=== PATIENT | female | born 1955 | race Caucasian/White ===

== ENCOUNTER 2018-05-09 07:39 | Outpatient (CLI) | payer MEDICARE, MEDICAID ==
--- NOTE | 2018-05-09 09:11 | CT ---
CT CHEST WITH CONTRAST: Multiple axial tomograms were obtained through the chest with iv enhancement. INDICATION: Breast cancer. Assess for metastasis. FINDINGS: The lung aguila are clear. There is no evidence of infiltrate or effusion. No evidence of mass or p ulmonary nodule. Mediastinum unremarkable. No evidence of axillary adenopathy. Images through uppe r abdomen show a distended gallbladder. No pericholecystic edema. Visualized liver, spleen, and callahan creas are unremarkable. Osseous structures are unremarkable. IMPRESSION: No acute process. Incidentally noted on images of the upper abdomen is a distended gallbladder. POS: [facility]
[2018-05-09] MEDS ORDERED: Iopamidol 370 76% 100 ML VIAL ONE (11:59)
--- NOTE | 2018-05-09 13:39 | NM ---
WHOLE BODY BONE SCAN: HISTORY: Malignant neoplasm, upper outer quadrant of right breast. The patient has a history of metastatic di sease to the left hip. Currently complains of right hip and left shoulder pain. The patient is on o ral chemotherapy. COMPARISON: Study from an outside institution from 01/22/2018. RADIOPHARMACEUTICAL: Technetium 99m MDP 31.5 millicuries injected intravenously. FINDINGS: Focal increased uptake in the left maxilla is again seen, consistent with periodontal disease. Focal increased uptake in the mid thoracic spine and lower lumbar spine, to the right of midline, con sistent with degenerative changes. Increased uptake in the shoulders, elbows, wrists, knees, and fee t, consistent with degenerative changes as well. No abnormally increased tracer localization is seen in either hip. Tracer excretion through the kidneys is within normal limits. Mildly increased uptake in the hip joints is also likely due to degenerative changes. IMPRESSION: No evidence of osseous metastatic disease. If there is high clinical concern for metastatic disease, MRI of the right hip and left shoulder woul d be helpful. A PET scan may also be helpful. POS: [facility]
== END 2018-05-09 07:40 | disposition home or self-care (01) ==
LOC: CT 07:39
PROVIDERS: ATTEND Internal Medicine Hematology & Oncology
DX: C50.411 Malignant neoplasm of upper-outer quadrant of right female breast (principal); C79.51 Secondary malignant neoplasm of bone
CPT/HCPCS: 71260; 78306; A9503; Q9967

== ENCOUNTER 2018-07-19 17:55 | Inpatient (IN) | payer MEDICARE, MEDICAID ==
[~2018-07-19 17:55] MED LIST: Aspirin Chewable 81 MG TAB ONE; Iopamidol 370 76% 100 ML VIAL ONE; Sodium Chloride 0.9% 1,000 ML BAG ONE
[2018-07-19 18:19] LABS: #Basophils 0.1 thou/uL (0.0-0.2); #Eosinphils 0.2 thou/uL (0.0-0.7); #Lymphocytes 1.9 thou/uL (1.20-3.40); #Monocytes 0.3 thou/uL (0.11-0.59); #Neutrophils 1.8 thou/uL (1.40-6.50); %Eosinophils 3.7 % (0.0-10.0); %Lymphocytes 45.5 % (21.0-51.0); %Monocytes 6.2 % (0.0-10.0); %Neutrophils 42.7 % (42.0-75.0); Hemoglobin 12.3 g/dL (12.0-16.0); Mean Corpuscular HGB CONC 35.7 g/dL (32.0-36.0); Mean Corpuscular Hemoglobin 35.5 pg (27.0-31.0); Mean Corpuscular Volume 99.7 fL (78.0-98.0); Mean Platelet Volume 6.7 fL (7.4-10.4); Platelet Count 167 thou/uL (130-400); RBC Distribution Width 12.9 % (11.5-14.5); Red Blood Cell (RBC) Count 3.47 mill/uL (4.20-5.40); White Blood Cell (WBC) Count 4.1 thou/uL (4.8-10.8)
--- NOTE | 2018-07-19 18:25 | RAD ---
SINGLE VIEW OF THE CHEST: 07/19/18 COMPARISON: None. HISTORY: Chest pain. Myocardial infarction. FINDINGS: Single view of the chest shows a normal sized cardiomediastinal silhouette. There is no evidence of c onsolidation, mass, or pleural effusion. The bones are unremarkable. IMPRESSION: No evidence of acute cardiopulmonary disease. POS: [facility]
[2018-07-19] MEDS ORDERED: Midazolam HCl 2 mg/2 ml Vial ONE (18:39)
[2018-07-19] MEDS ORDERED: Heparin 10,000 UNITS/1 ML VIAL ONE ×2 (18:41→19:28)
[2018-07-19] MEDS ORDERED: Nitroglycerin 100MG/250ML BOT 250 ML ONE (18:41)
[2018-07-19 18:53] LABS: ALT (SGPT) 14 U/L (8-55); AST (SGOT) 18 U/L (5-34); Albumin 4.4 g/dL (3.4-4.8); Alkaline Phosphatase 61 U/L (40-150); Anion Gap 16 mmol/L (10-20); BUN (Urea Nitrogen) 10 mg/dL (9.8-20.1); Bilirubin, Total 0.5 mg/dL (0.2-1.2); CK (CPK) 82 U/L (29-168); Calc. Creatinine Clearance 0 mL/min (70-130); Calcium 9.3 mg/dL (7.8-10.44); Carbon Dioxide 17 mmol/L (23-31); Chloride 108 mmol/L (98-107); Estimated GFR-MDRD 88; Glucose 115 mg/dL (80-115); Lipase 12 U/L (8-78); Potassium 3.8 mmol/L (3.5-5.1); Protein, Total 7.4 g/dL (6.0-8.3); Sodium 137 mmol/L (136-145)
[2018-07-19 19:04] LABS: CKMB 1.2 ng/mL (0-6.6)
[2018-07-19] MEDS ORDERED: Atropine Sulfate 1 mg/10 ml Syringe ONE (19:28)
[2018-07-19] MEDS ORDERED: TICAGRELOR 90 MG TABLET ONE (19:53)
[2018-07-19] MEDS ORDERED: Acetaminophen/Codeine 30-300mg Tablet PO PRN (20:19)
[2018-07-19] MEDS ORDERED: Nitroglycerin 0.4 MG TAB (25 Tab Bottle) SL PRN (20:19)
[2018-07-19] MEDS ORDERED: Fentanyl 100 MCG/2 ML VIAL ONE (20:19)
[2018-07-19] MEDS ORDERED: Fentanyl 100 MCG/2 ML VIAL SLOW IVP PRN (20:26)
[2018-07-19] MEDS ORDERED: Fentanyl 100 MCG/2 ML VIAL SLOW IVP SCH (20:30)
[2018-07-19] MEDS ORDERED: Nitroglycerin 2% Ointment 1 INCH/1 GM Packet TOP SCH (20:30)
[2018-07-19] MEDS ORDERED: TICAGRELOR 90 MG TABLET PO SCH (20:30)
[2018-07-19] MEDS ORDERED: Carvedilol 3.125 MG TAB PO SCH (20:45)
[2018-07-19] MEDS: Sodium Chloride 0.9% 1,000 ML IV SCH (21:05)
[2018-07-19] MEDS: Rosuvastatin 20 MG TAB PO SCH (21:06)
[2018-07-19] MEDS: Lisinopril 5 MG TAB PO SCH ×2 (21:06→22:38)
[2018-07-19] MEDS: traMADol HCl 50 MG TAB PO PRN (21:07)
--- NOTE | 2018-07-19 21:59 | CCL ---
DATE: 07/19/18 REASON FOR PROCEDURE: Acute ST elevation myocardial infarction. PROCEDURE: Left heart catheterization. Left ventriculogram. Percutaneous coronary intervention second obtuse mar ginal branch. The patient is a 63-year-old woman brought to the cardiac catheterization lab on an urgent basis havi ng chest pain and ST elevation in the inferior leads. She was prepped and draped in the usual fashion . Right groin anesthetized and using ultrasound guidance the 6 [place] [employer] sheath was placed using the mimi ropuncture kit initially. The artery was entered on the first attempt. Subsequently, coronary angiography was done. Efrain left-4 catheter visualized the circumflex better than the LAD. It is a very short left main. The right coronary was then visualized with a JR 3.5 otto de catheter. We were thinking this would likely be the infarct vessel but it proved to be a nondomina nt vessel with mild plaque and no obstruction. Returned attention to the left system and angiograms were done of the LAD using a JL 3.5 catheter. Th is all revealed a ---- of the left main short but no obstructive stenosis. LAD 10% plaque. Circumflex and obtuse marginal I normal with no obstruction. Next, obtuse marginal II in the mid segment there was an occlusion of the vessel with very small distally. Next, the left posterior descending artery w as free of any obstructive stenosis. The left ventricular ejection fraction was 75%. There was a smal l area of akinesis in the inferior wall. At this time there was some consideration whether to be treated with medically versus balloon dilatat ion. It looked like it was too small to stent. Broke scrub and went back to look at the films. After some consideration, in view of the continued chest pain and ST elevation, elected to attempt balloon angioplasty, as mentioned the vessel was too small to stent. FL3 guide catheter was used which cannul ated well. The patient was given Heparin and the ACT was therapeutic. It crossed the lesion with a 0. 014 wire and then ballooned it with a 2.0 x 20 mm balloon. Residual was approximately 35%. Long area of stenosis. It looked like the vessel was just too small to stent. It would require a long stent wit h a very small diameter. It looked like the vessel was actually not even 2.25 mm or in the 2 mm range . Patient had transient worsening of her chest pain with opening the artery and transient bradycardia b ut the EKG changes and chest pain resolved with balloon dilatation. The reason for some delay in intervention was considering whether the intervention should be done and if so how to do this versus being treated medically. As mentioned, successful intervention. CONCLUSION: One single vessel disease with occlusion of a second marginal branch in the mid segment. Small diamet er vessel successfully ballooned dilated.
[2018-07-19 22:46] VITALS: BMI 34.4
[2018-07-19] MEDS: Fentanyl 100 MCG/2 ML VIAL SLOW IVP PRN (23:00)
[2018-07-19] MEDS ORDERED: Amiodarone 450 MG, Admixture Fee 1 EACH in Dextrose 5% in Water 250 ML IVPB SCH (23:15)
[2018-07-20 00:27] LABS: Troponin I 9.477 ng/mL (< 0.028)
--- NOTE | 2018-07-20 02:02 | HP ---
REASON FOR ADMISSION: 1. Acute ST-elevation myocardial infarction. 2. Insulin-dependent diabetes mellitus. HISTORY OF PRESENT ILLNESS: Ms. Jen Arteaga is a delightful 63-year-old woman. She started having chest pain last night, it was substernal and then going across her chest, intense, but then it later resolved. During the day, the pain resolved. During the afternoon, however, it came back. It was intense and she was brought to the emergency room on an emergency basis, found to have ST-elevation in the inferior leads. She has never had pain like this before. MEDICATIONS: At home, the patient is taking, 1. Aspirin 81 mg a day. 2. Metformin 1000 mg twice a day. 3. Insulin 20 units. REVIEW OF SYSTEMS: CONSTITUTIONAL: Positive for severe chest pain. VISION: No changes. HEARING: No changes. PULMONARY: No cough or wheezing. GASTROINTESTINAL: No nausea, vomiting, or diarrhea. SKIN: No rashes. NEUROLOGIC: No unilateral weakness or numbness. PSYCHIATRIC: No unusual depression or anxiety. PAST MEDICAL HISTORY: 1. Insulin-dependent diabetes. 2. Hypertension. 3. Hypercholesterolemia. 4. She said she had some myalgias on atorvastatin. ALLERGIES: NONE REPORTED. PHYSICAL EXAMINATION: GENERAL: This is a 63-year-old woman in continued chest pain, not on any respiratory distress. VITAL SIGNS: Blood pressure initially was very high 190/117 and pulse 78. HEENT: Eyes, sclerae are nonicteric. Mouth, mucous membranes moist. NECK: Supple. No lymphadenopathy. LUNGS: Clear. No wheezing, rales, or rhonchi. CARDIAC: Normal S1, normal S2. There is no murmur, rub, or gallop. ABDOMEN: Soft and nontender. She is obese. EXTREMITIES: No clubbing or cyanosis. No edema. Good pedal pulse on the right. DIAGNOSTIC STUDIES: EKG initially did show ST-elevation in the inferior leads. PERTINENT LABORATORY DATA: Hemoglobin is 12.3. The first troponin was 0.036. ASSESSMENT: 1. Acute ST-elevation myocardial infarction. 2. Diabetes. 3. Hypertension. 4. Hypercholesterolemia, not on any medicines. PLAN: Discussed that we should go to the cardiac catheterization lab and do percutaneous intervention is indicated. Discussed risk of stroke, heart attack, iodine allergy, loss of blood supply to leg or kidney, stent thrombosis, and stent restenosis. The patient understood and wished to proceed. This was done successfully. The patient had an occlusion of the second marginal branch, which was balloon dilated. It is too small a stent that was done successfully. Job ID: [id number]
[2018-07-20] MEDS: traMADol HCl 50 MG TAB PO PRN (03:34)
[2018-07-20] MEDS ORDERED: Insulin Regular 300 UNITS/3 ML VIAL SC PRN (04:35)
[2018-07-20] MEDS ORDERED: Dextrose 50% Abboject 50 ML SYRINGE IVP PRN (04:35)
[2018-07-20] MEDS ORDERED: Dextrose 5% in Water 1,000 ML IV PRN (04:35)
[2018-07-20] MEDS: Fentanyl 100 MCG/2 ML VIAL SLOW IVP PRN (05:31)
[2018-07-20] MEDS ORDERED: Nitroglycerin 2% Ointment 1 INCH/1 GM Packet TOP SCH ×2 (06:00→08:00)
[2018-07-20 06:20] LABS: #Lymphocytes 1.3 thou/uL (1.20-3.40); #Monocytes 0.2 thou/uL (0.11-0.59); #Neutrophils 2.6 thou/uL (1.40-6.50); %Basophils 0.8 % (0.0-1.0); %Eosinophils 0.3 % (0.0-10.0); %Lymphocytes 30.7 % (21.0-51.0); %Monocytes 5.3 % (0.0-10.0); %Neutrophils 62.9 % (42.0-75.0); Mean Corpuscular HGB CONC 35.1 g/dL (32.0-36.0); Mean Platelet Volume 8.2 fL (7.4-10.4); Platelet Count 121 thou/uL (130-400); RBC Distribution Width 13.4 % (11.5-14.5); Red Blood Cell (RBC) Count 2.96 mill/uL (4.20-5.40); White Blood Cell (WBC) Count 4.1 thou/uL (4.8-10.8)
[2018-07-20 06:44] LABS: ALT (SGPT) 19 U/L (8-55); AST (SGOT) 71 U/L (5-34); Albumin 3.4 g/dL (3.4-4.8); Alkaline Phosphatase 43 U/L (40-150); Anion Gap 15 mmol/L (10-20); BUN (Urea Nitrogen) 10 mg/dL (9.8-20.1); Bilirubin, Total 0.6 mg/dL (0.2-1.2); Calc. Creatinine Clearance 137 mL/min (70-130); Calcium 8.2 mg/dL (7.8-10.44); Carbon Dioxide 16 mmol/L (23-31); Chloride 108 mmol/L (98-107); Estimated GFR-MDRD Greater than 90; Globulin 2.6 g/dL (2.4-3.5); Glucose 146 mg/dL (80-115); Potassium 3.7 mmol/L (3.5-5.1); Sodium 135 mmol/L (136-145)
[2018-07-20 06:49] LABS: Troponin I 18.055 ng/mL (< 0.028)
[2018-07-20] MEDS ORDERED: Fentanyl 100 MCG/2 ML VIAL SLOW IVP PRN (07:36)
[2018-07-20] MEDS ORDERED: Potassium Chloride 20 MEQ TAB PO SCH (08:00)
[2018-07-20] MEDS ORDERED: Magnesium 2 GM/50 ML 2 GM in Premix Bag 1 BAG IVPB SCH (08:00)
[2018-07-20] MEDS ORDERED: Carvedilol 3.125 MG TAB PO SCH (08:00)
--- NOTE | 2018-07-20 08:10 | PRG ---
DATE OF SERVICE: 07/20/2018 SUBJECTIVE: Ms. Arteaga is doing well. No chest pain or pressure. She feels much better today. OBJECTIVE: VITAL SIGNS: Blood pressure 111/60 and pulse 63, regular. LUNGS: Clear. CARDIAC: Normal S1. Normal S2. ABDOMEN: Soft, nontender. EXTREMITIES: Have clubbing. No cyanosis. There is no edema. LABORATORY DATA: The peak troponin was 18.055. Potassium 3.7. The patient did have some ventricular tachycardia relatively slow, last night was treated transiently with amiodarone. The patient was hemodynamically stable with a ventricular tachycardia. The heart rate was about 105, very slow V-tach. ASSESSMENT: 1. Status post myocardial infarction associated with obtuse marginal branch with small diameter vessel, treated with balloon angioplasty alone, looked too small to stent. 2. Transient ventricular tachycardia, resolved. 3. Diabetes. 4. Hypercholesterolemia. PLAN: 1. She is on. a. Aspirin. b. Brilinta. c. Statin. d. Losartan. 2. We will hold off on beta-sarah today with heart rate relatively low. 3. She has a lot of hip pain. We will have to cut the fentanyl down and when she leaves the intensive care unit, we will stop. Job ID: [id number]
[2018-07-20] MEDS: Aspirin Chewable 81 MG TAB PO SCH (08:24)
[2018-07-20] MEDS: TICAGRELOR 90 MG TABLET PO SCH ×2 (08:35→21:00)
[2018-07-20] MEDS ORDERED: Lisinopril 5 MG TAB PO SCH (09:00)
[2018-07-20] MEDS ORDERED: Losartan 25 MG TAB PO SCH ×2 (09:00)
[2018-07-20] MEDS: Sodium Chloride 0.9% 300 ML IV SCH ×5 (09:35→13:22)
[2018-07-20] MEDS ORDERED: Sodium Chloride 0.9% 200 ML IV PRN (10:14)
[2018-07-20] MEDS: Sodium Chloride 0.9% 1,000 ML IV SCH ×2 (10:36→16:19)
[2018-07-20] MEDS: Sodium Chloride 0.9% 250 ML IV SCH ×2 (11:00→13:23)
--- NOTE | 2018-07-20 11:16 | CON ---
DATE OF CONSULTATION: 07/20/2018 SERVICE: Pulmonary Medicine. REASON FOR CONSULTATION: ICU patient. HISTORY OF PRESENT ILLNESS: The patient is a 63-year-old white female with past medical history significant for onset of chest discomfort one day prior to presentation. Lasted for 3 or 4 hours and was kind of mild. It was chest heaviness that went up into the neck and left arm. She also had some shortness of breath that accompanied it. After a couple of hours, it went away, and she did not think much of it until the next day at 4:00 p.m. when she had the onset of the same chest discomfort, which was much more severe. After an hour and a half, it persisted and her daughter demanded that she go to the emergency department. Ultimately, she had findings consistent with ischemic heart disease, and was taken for an emergent cardiac catheterization. Blood vessel was critically stenosed and was ballooned open. Because of the size of the blood vessel, stent could not be placed across it. She denies any current fevers, chills, cough, nausea, or vomiting. As soon as the balloon was deployed, her chest pain ebbed away over a period of 2 to 3 minutes. Since then, she has not had any issues other than the marginal blood pressures yesterday evening. PAST MEDICAL HISTORY: 1. Coronary artery disease. 2. Type 2 diabetes mellitus, on insulin. 3. Hypertension. 4. Dyslipidemia. PAST SURGICAL HISTORY: 1. Hysterectomy. 2. Cardiac catheterization with percutaneous coronary intervention. FAMILY HISTORY: Noncontributory. SOCIAL HISTORY: Negative for alcohol, tobacco, or illicit drug use. ALLERGIES: LISINOPRIL. STATINS CAUSE MYALGIAS. MEDICATIONS: List of her inpatient medications was reviewed. No specific updates were made at this time. REVIEW OF SYSTEMS: General; head, ears, eyes, nose, throat; cardiovascular; respiratory; GI; ; musculoskeletal; neurologic; and skin are negative except as mentioned is the HPI. PHYSICAL EXAMINATION: VITAL SIGNS: Afebrile, pulse 84, respirations 19, and saturation 95% on room air. GENERAL: The patient is awake and alert, in no apparent distress. LUNGS: Excellent air entry. There is no prolonged expiratory phase. No wheezing, crackles, or rhonchi appreciated. HEART: Normal rate and regular. ABDOMEN: Soft, nontender, and nondistended. Bowel sounds are positive. MUSCULOSKELETAL: No cyanosis or clubbing. There is no pitting in the bilateral lower extremities. NEUROLOGIC: Grossly nonfocal. LABORATORY DATA: WBC 4.1, hemoglobin 11.0, platelets 121,000. Differential remains unremarkable. ACT is 132. Basic metabolic profile and liver function studies are unremarkable other than a gently uptrending AST. Troponin is increased to 18.055. ASSESSMENT: 1. Acute ST-elevation myocardial infarction, status post balloon angioplasty only as the branch of the obtuse marginal was too small to stent. 2. Type 2 diabetes mellitus. DISCUSSION AND PLAN: The patient is doing fine from a respiratory standpoint. She can be transitioned to the floor per Cardiology's discretion. Pulmonary will continue to follow if the patient remains in the ICU, but she will likely transition to the floor today. At that location, she will have no further requirements for inpatient Pulmonary/Critical Care opinion, and I will sign off. We will watch her blood pressures fairly closely. 70 minutes have been devoted to this patient in various activities. I personally reviewed all imaging studies and laboratory data noted within this document. For fifty percent of this time, I was interacting with the patient at the bedside or coordinating care with the care team. For the remainder of the time I was immediately available to the patient in the hospital unit. Job ID: [id number] MTDD
[2018-07-20] MEDS ORDERED: Sodium Chloride 0.9% 1,000 ML IV SCH (12:30)
[2018-07-20] MEDS: Rosuvastatin 20 MG TAB PO SCH (21:00)
[2018-07-20] MEDS: ASENAPINE 10 MG SL SCH ×2 (21:03→22:20)
[2018-07-21 05:20] LABS: #Eosinphils 0.1 thou/uL (0.0-0.7); #Lymphocytes 1.6 thou/uL (1.20-3.40); #Monocytes 0.3 thou/uL (0.11-0.59); #Neutrophils 1.7 thou/uL (1.40-6.50); %Basophils 0.9 % (0.0-1.0); %Eosinophils 1.8 % (0.0-10.0); %Lymphocytes 42.6 % (21.0-51.0); %Monocytes 9.1 % (0.0-10.0); %Neutrophils 45.6 % (42.0-75.0); Hemoglobin 10.3 g/dL (12.0-16.0); Mean Corpuscular HGB CONC 34.7 g/dL (32.0-36.0); Mean Corpuscular Hemoglobin 35.4 pg (27.0-31.0); Mean Platelet Volume 7.1 fL (7.4-10.4); Platelet Count 119 thou/uL (130-400); RBC Distribution Width 13.2 % (11.5-14.5); White Blood Cell (WBC) Count 3.7 thou/uL (4.8-10.8)
[2018-07-21] MEDS: TICAGRELOR 90 MG TABLET PO SCH ×2 (08:03→21:02)
[2018-07-21] MEDS: Aspirin Chewable 81 MG TAB PO SCH (08:03)
[2018-07-21] MEDS: Sodium Chloride 0.9% 1,000 ML IV SCH (08:03)
[2018-07-21] MEDS ORDERED: Losartan 25 MG TAB PO SCH (10:00)
[2018-07-21] MEDS ORDERED: Letrozole 2.5 MG TAB PO SCH (16:30)
[2018-07-21] MEDS: metFORMIN 500 MG TAB PO SCH (17:06)
[2018-07-21] MEDS: Rosuvastatin 20 MG TAB PO SCH (21:02)
[2018-07-21] MEDS: ASENAPINE 10 MG SL SCH (21:03)
[2018-07-22 07:35] VITALS: BP 104/56; TEMP 97.9
[2018-07-22] MEDS: metFORMIN 500 MG TAB PO SCH (08:43)
[2018-07-22] MEDS: TICAGRELOR 90 MG TABLET PO SCH (08:43)
[2018-07-22] MEDS: Aspirin Chewable 81 MG TAB PO SCH (08:43)
[2018-07-22] MEDS ORDERED: Losartan 25 MG TAB PO SCH (09:00)
[2018-07-22] MEDS ORDERED: Letrozole 2.5 MG TAB PO SCH (09:00)
--- NOTE | 2018-07-22 11:55 | DIS ---
DATE OF ADMISSION: 07/19/2018 DATE OF DISCHARGE: 07/22/2018 FINAL DIAGNOSES: 1. Status post posterior myocardial infarction. 2. Diabetes. 3. Hypercholesterolemia. 4. Obesity. 5. Hypertension. MEDICATIONS: At the time of discharge; 1. Aspirin 81 mg a day. 2. Losartan 50 mg a day. 3. Metformin 1000 mg twice a day. 4. Crestor 20 mg a day. 5. Brilinta 90 mg twice a day. HOSPITAL COURSE: Please see admission note for full details. Briefly, Ms. Arteaga is a 63-year-old woman presented to the hospital with severe intractable chest pain with ST elevation in the inferior leads. She was taken emergently to the cardiac catheterization lab. There, she was found to have the following; 1. Left main. Normal. 2. LAD. 10% plaque. 3. Circumflex to the proximal and mid segment were free of any obstructive stenosis. 4. Obtuse marginal 1. No obstructive stenosis. 5. Obtuse marginal 2. 100% occluded small diameter vessel. 6. Left posterior descending artery. No significant stenosis. 7. Right coronary artery was nondominant, not obstructive. There was some consideration for the best treatment in this patient. In view of the ongoing chest pain, it was elected to try to open the second marginal branch. There is still ST elevation. There is some consideration just treating conservatively, but in view of the ongoing chest pain and ST elevation, elected to do a balloon angioplasty. A 2.0 x 20 mm balloon was used to dilate the area up to 12 atmospheres. She had resolution of flow with a 30% to 40% residual narrowing. The vessel really looked too small to stent. In terms of the diameter stenosis, the restenosis rate would be extremely high. The patient tolerated the balloon angioplasty well. It appeared the stenting would require a very long stent probably 2 to 2.5 mm in diameter, 2.25 would slightly be oversize it appears. Did well with medical therapy following that. Her hemoglobin yesterday was 10.3. Her potassium is 3.7. She is on angiotensin receptor linda. Creatinine 0.64. Previously, she had known mixed hyperlipidemia. She was not taking statins due to myalgias. I put her back on the rosuvastatin. The patient will be followed up in the office to bring all medicines at followup in 2 weeks. The patient was NOT PRESCRIBED A BETA LINDA AT THIS TIME due to episodes of low heart rate and some hypotension. She was back on the angiotensin receptor linda. She did have some nonsustained ventricular tachycardia, rate is just 100 to 110 in the hours following the infarct, but there has been no recurrent ventricular arrhythmias. Long-term prognosis guarded. She needs to lose weight. Stay on the medications. Exercise on a regular basis. Job ID: [id number]
[2018-07-22] MEDS ORDERED: metFORMIN 500 MG TAB PO SCH (17:00)
[2018-07-22] MEDS ORDERED: Rosuvastatin 20 MG TAB PO SCH (21:00)
[2018-07-23] MEDS ORDERED: Losartan 25 MG TAB PO SCH (09:00)
--- NOTE | 2018-07-23 16:45 | EKG ---
Test Reason : POST CATH Blood Pressure : / mmHG Vent. Rate : 088 BPM Atrial Rate : 090 BPM P-R Int : 000 ms QRS Dur : 148 ms QT Int : 434 ms P-R-T Axes : 000 254 069 degrees QTc Int : 525 ms Wide QRS rhythm Accelerated idioventricular rhythm Abnormal ECG No previous ECGs available Confirmed by DR. Charlee MO ([id number]) on 07/23/2018 4:45:23 PM Referred By: Crystal MO Confirmed By:DR. Charlee MO
--- NOTE | 2018-07-23 16:46 | EKG ---
Test Reason : AM Blood Pressure : / mmHG Vent. Rate : 059 BPM Atrial Rate : 059 BPM P-R Int : 174 ms QRS Dur : 080 ms QT Int : 454 ms P-R-T Axes : 058 014 054 degrees QTc Int : 449 ms Sinus bradycardia Inferior-posterior infarct , possibly acute ACUTE MD / STEMI Abnormal ECG When compared with ECG of 19-JUL-2018 20:31, (Unconfirmed) Sinus rhythm has replaced Wide QRS rhythm Vent. rate has decreased BY [address] Charlee MO ([id number]) on 07/23/2018 4:45:41 PM Referred By: Crystal MO Confirmed By:DR. Charlee MO
== END 2018-07-22 10:35 | disposition home or self-care (01) | DRG 251 ==
LOC: ERS 17:55 → CCL 18:34 → CCU 19:27 → 2NO 07-20 12:59
PROVIDERS: ADMIT Internal Medicine Cardiovascular Disease; ATTEND Internal Medicine Cardiovascular Disease
PROC: 02703ZZ Dilation of Coronary Artery, One Artery, Percutaneous Approach (ICD-10-PCS; principal; 2018-07-19)
PROC: 4A023N7 Measurement of Cardiac Sampling and Pressure, Left Heart, Percutaneous Approach (ICD-10-PCS; 2018-07-19)
PROC: B2151ZZ Fluoroscopy of Left Heart using Low Osmolar Contrast (ICD-10-PCS; 2018-07-19)
PROC: B2101ZZ Fluoroscopy of Single Coronary Artery using Low Osmolar Contrast (ICD-10-PCS; 2018-07-19)
DX: I21.29 ST elevation (STEMI) myocardial infarction involving other sites (principal); I47.2 Ventricular tachycardia; E11.9 Type 2 diabetes mellitus without complications; I10 Essential (primary) hypertension; E78.00 Pure hypercholesterolemia, unspecified; M79.10 Myalgia, unspecified site; I25.10 Atherosclerotic heart disease of native coronary artery without angina pectoris; Z90.710 Acquired absence of both cervix and uterus; Z79.4 Long term (current) use of insulin; Z79.82 Long term (current) use of aspirin; Z79.899 Other long term (current) drug therapy
CPT/HCPCS: 36415; 36416; 71045; 80053; 82550; 82553; 83690; 84484; 85025; 85347; 92920; 93005; 93010; 93306; 93458; 93798; 99152; 99153; C1769; C1887; J0282; J0461; J1644; J2250; J3010; J3475; J7050; J7070; Q9967

== ENCOUNTER 2018-07-25 14:52 | Observation (INO) | payer MEDICARE, MEDICAID ==
[2018-07-25 15:23] LABS: #Basophils 0.1 thou/uL (0.0-0.2); #Eosinphils 0.1 thou/uL (0.0-0.7); #Monocytes 0.5 thou/uL (0.11-0.59); #Neutrophils 2.1 thou/uL (1.40-6.50); %Basophils 1.7 % (0.0-1.0); %Lymphocytes 42.3 % (21.0-51.0); %Monocytes 10.2 % (0.0-10.0); %Neutrophils 42.8 % (42.0-75.0); Hemoglobin 11.9 g/dL (12.0-16.0); Mean Corpuscular HGB CONC 34.7 g/dL (32.0-36.0); Mean Corpuscular Hemoglobin 35.2 pg (27.0-31.0); Mean Platelet Volume 6.4 fL (7.4-10.4); Platelet Count 194 thou/uL (130-400); RBC Distribution Width 13.1 % (11.5-14.5); Red Blood Cell (RBC) Count 3.37 mill/uL (4.20-5.40); White Blood Cell (WBC) Count 4.8 thou/uL (4.8-10.8)
[2018-07-25 15:47] LABS: ALT (SGPT) 25 U/L (8-55); AST (SGOT) 27 U/L (5-34); Albumin 4.5 g/dL (3.4-4.8); Alkaline Phosphatase 59 U/L (40-150); Anion Gap 15 mmol/L (10-20); BUN (Urea Nitrogen) 16 mg/dL (9.8-20.1); Bilirubin, Total 0.7 mg/dL (0.2-1.2); Calc. Creatinine Clearance 0 mL/min (70-130); Calcium 9.7 mg/dL (7.8-10.44); Carbon Dioxide 21 mmol/L (23-31); Chloride 107 mmol/L (98-107); Estimated GFR-MDRD 69; Globulin 2.6 g/dL (2.4-3.5); Glucose 110 mg/dL (80-115); Protein, Total 7.1 g/dL (6.0-8.3); Sodium 139 mmol/L (136-145)
--- NOTE | 2018-07-25 16:42 | RAD ---
PORTABLE CHEST 1 VIEW: Date: 07/25/18 Time: 1531 hours HISTORY: Chest pain. FINDINGS: Comparison made with exam of 07/19/18. The heart size is normal. The lungs are expanded without focal areas of consolidation, pneumothoraces , or pleural effusions. IMPRESSION: No acute process. POS: [facility]
[2018-07-25] MEDS ORDERED: Enoxaparin Sodium 100 MG/ML SYRINGE ONE (17:07)
[2018-07-25] MEDS ORDERED: Nitroglycerin 2% Ointment 1 INCH/1 GM Packet ONE (17:50)
[2018-07-25 18:57] LABS: Critical Call Chem Troponin I RESULT DECREASING; Troponin I 0.673 ng/mL (< 0.028)
[2018-07-25] MEDS ORDERED: Guaifenesin DM 100-10/5 ML UDCUP PO PRN (19:11)
[2018-07-25] MEDS ORDERED: Acetaminophen 325 MG TAB PO PRN (19:11)
[2018-07-25] MEDS ORDERED: Nitroglycerin 0.4 MG TAB (25 Tab Bottle) SL PRN (19:11)
[2018-07-25] MEDS ORDERED: HumaLOG 300 UNITS/3 ML VIAL SC PRN ×2 (19:11)
[2018-07-25] MEDS ORDERED: Bisacodyl 10 MG SUPP PR PRN (19:11)
[2018-07-25] MEDS ORDERED: Dextrose 50% Abboject 50 ML SYRINGE SLOW IVP PRN (19:11)
[2018-07-25] MEDS ORDERED: Dextrose 5% in Water 1,000 ML IV PRN (19:11)
[2018-07-25] MEDS ORDERED: Senokot S 8.6-50 MG TAB PO PRN (19:11)
[2018-07-25] MEDS ORDERED: Sodium Chloride 0.9% 1,000 ML IV SCH (19:15)
[2018-07-25 19:18] VITALS: BMI 33.0
[2018-07-25] MEDS: TICAGRELOR 90 MG TABLET PO SCH (20:37)
[2018-07-25] MEDS: Famotidine 20 MG TAB PO SCH (20:37)
[2018-07-25] MEDS: Rosuvastatin 20 MG TAB PO SCH (20:40)
[2018-07-25] MEDS: Enoxaparin Sodium 100 MG/ML SYRINGE SC SCH (20:40)
--- NOTE | 2018-07-25 20:43 | HP ---
REASON FOR ADMISSION: Chest pain. HISTORY OF PRESENTING ILLNESS: The patient gives history of left-sided chest pain, which is 4 to 5/10 in intensity with radiation to the neck area. She has had balloon angioplasty done on last Sunday for second marginal branch in the mid segment area on 07/19/[address] Salmeron. She was told that this was a small vessel and it could not be stented. The patient stated from Sunday evening when she got discharged, she has been getting some exertional chest pain, but not as bad as today. She took 3 tablets of nitroglycerin, which did not completely relieve her pain, hence called Dr. Salmeron's office and was asked to come to the ER. Currently, she still has pain of 3 to 4/10 in intensity. No complaints of palpitations, PND, or orthopnea. PAST MEDICAL AND SURGICAL HISTORY: 1. History of breast cancer, on Ibrance and letrozole. She was diagnosed in 2017 and is in remission from last 1 year or so. She has not received radiation therapy, but has received chemotherapy. No surgery was done for her breast cancer. 2. History of cervical cancer with prior hysterectomy. 3. Dyslipidemia. 4. Hypertension. 5. Diabetes mellitus type 2, which is insulin dependent. CURRENT MEDICATIONS: 1. Brilinta 90 mg twice daily. 2. Crestor 20 mg p.o. daily. 3. Metformin 1000 mg p.o. twice daily. 4. Losartan 50 mg p.o. daily. 5. Letrozole 2.5 mg p.o. daily. 6. Aspirin 81 mg daily. 7. Ibrance 125 mg p.o. daily. 8. Levemir 20 units subcu at bedtime. ALLERGIES: INTOLERANT TO LISINOPRIL, WHICH CAUSES HER TO HAVE COUGHING SPELLS. PERSONAL HISTORY: Does not abuse alcohol or drugs. No history of smoking. FAMILY HISTORY: Mother at the age of 80 years. She has had history of coronary artery disease, COPD, and diabetes. Father committed suicide when he was 81 years old. CODE STATUS: Full. POWER OF LEARNING AND DEVELOPMENT MANAGER: Her daughter, Ms. Aydee Salazar. REVIEW OF SYSTEMS: CONSTITUTIONAL: Negative for weight loss or gain, ability to conduct usual activities. SKIN: Negative for rash, itching. EYES: Negative for double vision, pain. ENT/MOUTH: Negative for nose bleeding, neck stiffness, pain, tenderness. CARDIOVASCULAR: Negative for palpitations, dyspnea on exertion, orthopnea. RESPIRATORY: Negative for shortness of breath, wheezing, cough, hemoptysis, fever or night sweats. GASTROINTESTINAL: Negative for poor appetite, abdominal pain, heartburn, nausea , vomiting, constipation, or diarrhea. GENITOURINARY: Negative for urgency, frequency, dysuria, nocturia. MUSCULOSKELETAL: Negative for pain, swelling. NEUROLOGIC/PSYCHIATRIC: Negative for anxiety, depression. ALLERGY/IMMUNOLOGIC: Negative for skin rash, bleeding tendency. PHYSICAL EXAMINATION: GENERAL: The patient is a 63-year-old female, who is currently not in any acute distress. VITAL SIGNS: Blood pressure 100/66, pulse 76 per minute, respiratory rate 16 per minute, temperature 99 degrees Fahrenheit, saturating 99% on room air. NECK: Supple. No elevated JVD. HEENT: Eyes; extraocular muscles intact. Pupils reacting to light. Oral cavity, mucous membranes are moist. No exudates or congestion. CARDIOVASCULAR: S1, S2 heard. Regular rhythm. RESPIRATORY: Air entry 1+ bilateral. No rales or rhonchi. ABDOMEN: Soft. Bowel sounds heard. No tenderness, rigidity, or guarding. EXTREMITIES: No peripheral edema or calf tenderness. VASCULAR: Peripheral pulses 1+ bilateral. No ischemic ulcerations or gangrene. CENTRAL NERVOUS SYSTEM: No gross focal deficits noted. The patient is alert, awake, oriented well. PSYCHIATRIC: The patient's mood is euthymic. No hallucinations or delusions. LABORATORY AND DIAGNOSTIC DATA: Chest x-ray done, shows no acute cardiothoracic process. Troponin-I 0.76, first set; second set is 0.67. CK-MB 1.0. Albumin is 4.5. Liver enzymes within normal limits. BUN 16, creatinine 0.8, serum bicarb is 21. White count of 4.8, H and H are 11 and 34, platelet count 194, MCV is 101 with 42% neutrophils. EKG done, shows normal sinus rhythm at 74 beats per minute. There is questionable Q-wave seen in leads II, III, aVF. CLINICAL IMPRESSION AND PLAN: The patient will be under observation on telemetry for chest pain, rule out ACS with recent balloon angioplasty of second marginal branch done on 07/19/[address] Salmeron. She has had STEMI of inferior wall then during her hospitalization. We will continue her aspirin, Brilinta, and add Lovenox 90 mg subcu q.12 hourly as the patient still has ongoing chest pain. Dr. Salmeron has been consulted from ER for Cardiology consultation. We will continue her on a small dose of Lopressor at 12.5 mg twice daily, nitroglycerin paste half-inch q.8 hourly, normal saline 70 mL per hour to keep her systolic blood pressures above 100. We will hold her Cozaar for now due to low blood pressure. We will continue Crestor, letrozole, and Ibrance. The patient will be on clear liquid diet for now until Cardiology clears her. We will continue to closely monitor her on telemetry. Job ID: [id number] MTDD
[2018-07-25] MEDS ORDERED: Metoprolol Tartrate 25 MG TAB PO SCH (21:00)
[2018-07-25 21:55] LABS: Critical Call Chem Troponin I RESULT DECREASING; Troponin I 0.629 ng/mL (< 0.028)
[2018-07-25] MEDS: Nitroglycerin 2% Ointment 1 INCH/1 GM Packet TOP SCH (22:12)
--- NOTE | 2018-07-25 23:15 | CON ---
DATE OF CONSULTATION: 07/25/2018 INDICATION FOR CONSULTATION: A 63-year-old female who recently within the last week underwent angioplasty to the left circumflex, 2nd obtuse marginal branch, which was a very small vessel. It was almost too small to have a stent placed. She came in with a non ST-segment elevation myocardial infarction. Her troponin I was positive for myocardial infarction. She then presented again. She actually was discharged home on Sunday. She said she was doing okay, but then Sunday night, started feeling bad again. She complains of intermittent chest pressure. She has been having some nausea. She has been taking nitroglycerin, which relieved her pain usually and then today she took 3 nitroglycerin. She called the office and was advised to go to the emergency room. When she arrived here, her cardiac enzymes still trending downward from her previous non ST-segment elevation myocardial infarction. Her EKG did not show any acute ST-segment changes. She does have T-wave inversion in III and aVF, but no acute ST-segment elevation and she appears to be very comfortable, but still states she occasionally has some chest pressure and she also states occasionally she is short of breath. She has actually been relatively active since being discharged. She takes her grandchildren to the library. She has been going to the store, but still continues to have some chest discomfort despite these maneuvers, and then today she started having a cough. At this time, she appears to be relatively comfortable in the emergency room. She was given nitroglycerin, Lovenox and 1 L of fluid because she was somewhat hypotensive when she arrived in the emergency room. PAST MEDICAL HISTORY: Significant for breast cancer, which has been metastatic. She states now, however, she is cured. She was given chemotherapy, but no radiation or surgery was performed. She also had mets to the bone. She states now this is completely resolved. She has had also cervical cancer and hysterectomy. SOCIAL HISTORY: She has no alcohol or tobacco abuse. She has children who have no heart disease. FAMILY HISTORY: Her mother did have coronary artery disease, congestive heart failure, and atrial fibrillation as well as COPD. ALLERGIES: NONE. MEDICATIONS: Include; 1. Aspirin 81 mg a day. 2. Metformin a 1000 mg b.i.d. 3. Levemir insulin. 4. Losartan 25 mg a day. 5. Brilinta 90 mg b.i.d. 6. Nitroglycerin p.r.n. as noted above. 7. Isosorbide mononitrate 30 mg q.24 h. 8. Crestor 20 mg daily. 9. Letrozole 2.5 mg once a day. ALLERGIES: NONE. REVIEW OF SYSTEMS: She wears glasses. She complains of cough, shortness of breath, nausea, lightheadedness, and chest pressure. Otherwise, 12-point review of systems was unremarkable. PHYSICAL EXAMINATION: GENERAL: Reveals an obese, middle-aged female. VITAL SIGNS: Blood pressure is 114/69, heart rate is 74 and regular. HEENT: Show the head to be normocephalic and atraumatic. Carotid pulses are present. There ar no bruits. CHEST: Clear to auscultation without rales, rhonchi, or wheezing. CARDIOVASCULAR: Reveals a regular rate and rhythm with normal S1, S2. I do not hear an S3 nor an S4. No other any significant murmurs, heaves, thrills, bruits , or rubs. ABDOMEN: Obese. Positive bowel sounds are present. No organomegaly or masses are noted. VASCULAR: Femoral pulses are present. EXTREMITIES: Show mild 1+ lower extremity edema. Pedal pulses are present. There are no other abnormalities. SKIN: Warm and dry. NEUROLOGIC: The patient appears to be fully intact. She does appear to be somewhat anxious at times though. DIAGNOSTIC DATA: EKG shows a sinus rhythm with T-wave inversion in III and aVF , and also small Q-waves in III and aVF, as well as in lead II compatible with inferior myocardial infarction. Otherwise, the EKG is relatively unremarkable. I suspect this may be due to the previous non STEMI that she suffered on her last admission, which was just a few days ago. LABORATORY DATA: As noted, her troponin I continues to trend downward. Remaining laboratory data appear to be stable. IMPRESSION: 1. Middle-aged female who is status post non ST-segment elevation myocardial infarction, who underwent angioplasty to the left circumflex, second obtuse marginal branch, which was a very small vessel. She may need to have further intervention. She may have re-occluded the vessel or she may have restenosed the vessel. Certainly after reviewing the films, even if the vessel closes, most likely she will not have a large myocardial infarction or not a large amount of tissue at risk, andt she has started to form collaterals from the distal left anterior descending artery to the obtuse marginal branch. She may continue to form this. I did explain to the patient that she may continue to have some pressure until the collaterals have increased in size or if she continues to have problems or EKG changes then it is always a possibility she could undergo a repeat cardiac catheterization and possible small stent placement to the obtuse marginal branch of left circumflex. I did also explain to her that due to the size of the vessel, she would be at risk for having stent thrombosis due to the small vessel size. 2. History of breast cancer which has been metastatic. This appears to be stable at this time. From a cardiac standpoint, she appears to be relatively stable despite the chest pressure. I would agree with the present management. We will continue the nitrates as well as her other medications for her hypertension and also for her diabetes, and also we would continue the Brilinta. Further care of the patient will be directed by Dr. Salmeron when he visits with the patient tomorrow. I did explain her she needs to be kept n.p.o. after midnight tonight until he can make a decision tomorrow morning about possible repeat catheterization. Job ID: [id number] MTDD
[2018-07-26] MEDS: ASENAPINE 10 MG PO SCH ×2 (02:02→21:05)
[2018-07-26] MEDS: Nitroglycerin 2% Ointment 1 INCH/1 GM Packet TOP SCH ×2 (05:53→17:29)
[2018-07-26 06:18] LABS: Eosinophils 4 % (0-10); Hemoglobin 10.8 g/dL (12.0-16.0); Lymphocytes 57 % (21-51); MDiff Complete? YES; Mean Corpuscular HGB CONC 34.7 g/dL (32.0-36.0); Mean Corpuscular Hemoglobin 35.2 pg (27.0-31.0); Mean Platelet Volume 6.7 fL (7.4-10.4); Monocytes 15 % (0-10); Neutrophil 23 % (42-75); Platelet Count 154 thou/uL (130-400); Platelet Morphology Comment Appears Adequate; RBC Distribution Width 13.1 % (11.5-14.5); Red Blood Cell (RBC) Count 3.07 mill/uL (4.20-5.40); White Blood Cell (WBC) Count 4.2 thou/uL (4.8-10.8)
[2018-07-26 06:20] LABS: Anion Gap 11 mmol/L (10-20); BUN (Urea Nitrogen) 11 mg/dL (9.8-20.1); Calc. Creatinine Clearance 105 mL/min (70-130); Carbon Dioxide 21 mmol/L (23-31); Chloride 114 mmol/L (98-107); Estimated GFR-MDRD 73; Glucose 130 mg/dL (80-115); Potassium 3.9 mmol/L (3.5-5.1); Sodium 142 mmol/L (136-145)
[2018-07-26] MEDS ORDERED: Losartan 25 MG TAB PO SCH (09:00)
[2018-07-26] MEDS: Aspirin Chewable 81 MG TAB PO SCH (09:46)
[2018-07-26] MEDS: TICAGRELOR 90 MG TABLET PO SCH ×2 (09:46→21:06)
[2018-07-26] MEDS: Famotidine 20 MG TAB PO SCH ×2 (09:47→21:06)
[2018-07-26] MEDS: Letrozole 2.5 MG TAB PO SCH (09:48)
[2018-07-26] MEDS: Enoxaparin Sodium 100 MG/ML SYRINGE SC SCH ×2 (09:50→11:51)
--- NOTE | 2018-07-26 09:55 | PRG ---
DATE OF SERVICE: 07/26/2018 SUBJECTIVE: As outlined in the chart, Ms. Arteaga is admitted with recurrent episodes of chest pressure at rest yesterday. The patient is pain-free now. OBJECTIVE: VITAL SIGNS: Her blood pressure is 142/73 and pulse is 61 and regular. LUNGS: Clear. CARDIAC: Normal S1 and normal S2. ABDOMEN: Soft and nontender. LABORATORY DATA: Troponin levels went from 0.76 yesterday to 0.69 last night. This is probably related to the recent myocardial infarction as opposed to additional injury. ASSESSMENT: 1. Status post ST-elevation myocardial infarction a week ago. The culprit vessel with an obtuse marginal branch, a very small diameter branch, approximately 2 mm in diameter, about 20 mm in length plaque. 2. Recurrent chest pain, probably related to the same vessel. Poor candidate for stenting due to the small diameter of the vessel. PLAN: Discussed options. 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 She prefers not to have a stent placed unless we actually had to do this. I think that is reasonable. Certainly, if the vessel occluded, would not be indicated to try to open the vessel. Also at this point, there may be some difficulty in placing a wire down the vessel if it is still open. Medical therapy seems appropriate at this time. If she continues to have pain, we could repeat the catheterization. As mentioned, if she does have occlusion of the vessel, would not try to re-intervene. If it is still open, could try to get a wire and then a stent down the vessel, although the long-term patency rate on these long lesions and very small vessels is not good. The patient is doing quite well now. Hopefully, she can be go home tomorrow if doing well and will be out for next few days. Job ID: [id number]
--- NOTE | 2018-07-26 13:07 | PDOC.PN ---
- Subjective Encounter Start Date: 07/26/18 Encounter Start Time: 09:15 Subjective: no chest pain or sob now -: feels better -: she saw this am - Objective Resuscitation Status - Order Detail: 07/25/18 18:59 Resuscitation Status Routine Resuscitation Status: FULL: Full Resuscitation Discussed with: POA: Ms.Dana Salazar daughter JEFFREY Reviewed: Yes Vital Signs & Weight: Vital Signs (12 hours) Temp Pulse Resp BP BP Pulse Ox 07/26/18 11:41 98.7 F 69 19 125/70 97 07/26/18 07:48 97.8 F 61 16 142/73 H 97 07/26/18 02:41 65 16 110/68 97 Weight Weight 198 lb 3.2 oz I&O: 07/25/18 07/26/18 07/27/18 06:59 06:59 06:59 Intake Total 1242 269 Output Total 1400 Balance -158 269 Result Diagrams: 07/26/18 05:26 07/26/18 05:26 Additional Labs: Accuchecks 07/26/18 07/25/18 10:25 22:13 POC Glucose 237 H 172 H Phys Exam - Physical Examination HEENT: PERRLA, moist MMs Neck: no JVD, supple Respiratory: no wheezing, no rales Cardiovascular: RRR, no significant murmur Gastrointestinal: soft, non-tender, positive bowel sounds Musculoskeletal: no edema, pulses present Neurological: non-focal, moves all 4 limbs Psychiatric: normal affect, A&O x 3 Dx/Plan (1) Chest pain Code(s): R07.9 - CHEST PAIN, UNSPECIFIED Status: Resolved (2) CAD (coronary artery disease) Code(s): I25.10 - ATHSCL HEART DISEASE OF [place] CORONARY ARTERY W/O ANG PCTRS Status: Acute Qualifiers: Coronary Disease-Associated Artery/Lesion type: [place] artery [place] vs. transplanted heart: [place] heart Associated angina: with stable angina Qualified Code(s): I25.118 - Atherosclerotic heart disease of [place] coronary artery with other forms of angina pectoris Comment: recent angioplasty with no stent (3) HTN (hypertension) Code(s): I10 - ESSENTIAL (PRIMARY) HYPERTENSION Status: Chronic Qualifiers: Hypertension type: essential hypertension Qualified Code(s): I10 - Essential (primary) hypertension (4) Dyslipidemia Code(s): E78.5 - HYPERLIPIDEMIA, UNSPECIFIED Status: Chronic (5) DM type 2 (diabetes mellitus, type 2) Status: Chronic Qualifiers: Diabetes mellitus mcfp insulin use: with mcfp use Diabetes mellitus complication status: with unspecified complications Qualified Code(s) : E11.8 - Type 2 diabetes mellitus with unspecified complications; Z79.4 - detention (current) use of insulin (6) H/O malignant neoplasm of breast Code(s): Z85.3 - PERSONAL HISTORY OF MALIGNANT NEOPLASM OF BREAST Status: Chronic Comment: in remission, finished chemo, no radiation or surgery - Plan hemostable -: continue asp, brillinta, imdur, cozaar, toprol xl, crestor -: continue home insulin regimen -: dc plan in am per cardio adv -: to ambulate in hallway as tolerated, will dc lovenox full dose * . Review of Systems - Medications/Allergies Allergies/Adverse Reactions: Allergies Allergy/AdvReac Type Severity Reaction Status Date / Time lisinopril Allergy COUGH Verified 07/19/18 22:41 Medications: Current Medications Acetaminophen (Tylenol) 650 mg PO Q4H PRN PRN Reason: Headache/Fever/Mild Pain (1-3) Last Admin: 07/25/18 20:46 Dose: 650 mg Aspirin (Aspirin Chewable) 81 mg PO DAILY [facility] Last Admin: 07/26/18 09:46 Dose: 81 mg Bisacodyl (Dulcolax) 10 mg RI DAILYPRN PRN PRN Reason: Constipation Dextrose/Water (Dextrose 50%) 25 gm SLOW IVP PRN PRN PRN Reason: Hypoglycemia Enoxaparin Sodium (Lovenox) 90 mg SC Q12HR [facility] Last Admin: 07/26/18 11:51 Dose: 90 mg Famotidine (Pepcid) 20 mg PO BID [facility] Last Admin: 07/26/18 09:47 Dose: 20 mg Glucagon (Glucagon) 1 mg IM PRN PRN PRN Reason: Hypoglycemia Guaifenesin/Dextromethorphan (Robitussin Dm) 15 ml PO Q4H PRN PRN Reason: Cough Dextrose/Water (D5w) 1,000 mls @ 0 mls/hr IV .Q0M PRN PRN Reason: Hypoglycemia Insulin Human Lispro (Humalog) 0 units SC .MODERATE SLIDING SC PRN PRN Reason: Moderate Correctional Scale Last Admin: 07/26/18 11:51 Dose: 4 unit Insulin Human Lispro (Humalog) 0 units SC .BEDTIME SLIDING SC PRN PRN Reason: Bedtime Correctional Scale Isosorbide Mononitrate (Imdur) 60 mg PO DAILY [facility] Last Admin: 07/26/18 09:47 Dose: 60 mg Letrozole (Femara) 2.5 mg PO DAILY [facility] Last Admin: 07/26/18 09:48 Dose: 2.5 mg Losartan Potassium (Cozaar) 25 mg PO DAILY [facility] Metoprolol Succinate (Toprol Xl) 25 mg PO DAILY [facility] Last Admin: 07/26/18 09:46 Dose: 25 mg Nitroglycerin (Nitrostat) 0.4 mg SL Q5MIN PRN PRN Reason: Chest Pain Palbociclib [Ibrance (]) 0 each PO DAILY [facility] Asenapine (Saphris) (10 Mg) 0 each PO HS [facility] Last Admin: 07/26/18 02:02 Dose: Not Given Rosuvastatin Calcium (Crestor) 20 mg PO HS [facility] Last Admin: 07/25/18 20:40 Dose: Not Given Senna/Docusate Sodium (Senokot S) 2 tab PO BID PRN PRN Reason: Constipation Sodium Chloride (Flush - Normal Saline) 10 ml IVF Q12HR [facility] Last Admin: 07/26/18 09:50 Dose: Not Given Sodium Chloride (Flush - Normal Saline) 10 ml IVF PRN PRN PRN Reason: Saline Flush Ticagrelor (Brilinta) 90 mg PO BID [facility] Last Admin: 07/26/18 09:46 Dose: 90 mg
[2018-07-26] MEDS: metFORMIN 500 MG TAB PO SCH (17:28)
[2018-07-26] MEDS: Rosuvastatin 20 MG TAB PO SCH (21:07)
[2018-07-27] MEDS: Nitroglycerin 2% Ointment 1 INCH/1 GM Packet TOP SCH ×2 (01:49→08:27)
[2018-07-27 07:56] VITALS: BP 127/65; TEMP 97.3
[2018-07-27] MEDS: metFORMIN 500 MG TAB PO SCH (08:19)
[2018-07-27] MEDS: Aspirin Chewable 81 MG TAB PO SCH (08:19)
[2018-07-27] MEDS: Famotidine 20 MG TAB PO SCH (08:19)
[2018-07-27] MEDS: Letrozole 2.5 MG TAB PO SCH (08:20)
[2018-07-27] MEDS: TICAGRELOR 90 MG TABLET PO SCH (08:21)
[2018-07-27] MEDS ORDERED: Losartan 25 MG TAB PO SCH (09:00)
[2018-07-27] MEDS ORDERED: Non-Formulary Item 1 EACH (Insulin Detemir [Levemir] 20 UNIT) SQ SCH (09:00)
[2018-07-27] MEDS ORDERED: Insulin Glargine 20 UNITS in Pre-Filled Syringe SC SCH (09:00)
[2018-07-27 09:10] LABS: Hemoglobin 10.9 g/dL (12.0-16.0); Platelet Count 151 thou/uL (130-400)
== END 2018-07-27 11:18 | disposition home or self-care (01) ==
LOC: ERS 14:52 → 2SW 18:54
PROVIDERS: ADMIT Internal Medicine; ATTEND Internal Medicine
DX: R07.89 Other chest pain (principal); R05 Cough; R06.02 Shortness of breath; R11.0 Nausea; R42 Dizziness and giddiness; I10 Essential (primary) hypertension; E11.9 Type 2 diabetes mellitus without complications; E78.5 Hyperlipidemia, unspecified; Z79.4 Long term (current) use of insulin; Z79.82 Long term (current) use of aspirin; Z79.899 Other long term (current) drug therapy; Z88.8 Allergy status to other drugs, medicaments and biological substances
CPT/HCPCS: 71045; 80048; 80053 ×2; 82553; 82565; 82962 ×3; 84484 ×2; 85014; 85018; 85025 ×2; 85049; 86300; 93005; 94760; 96360; 96361 ×2; 96372 ×2; 97139; 99285; G0378 ×2; 36415; 36416; J1650; J1825

== ENCOUNTER 2018-08-06 16:21 | Outpatient (CLI) | payer MEDICARE, MEDICAID ==
--- NOTE | 2018-08-06 16:50 | SJPRAD ---
Right hip 2 views HISTORY: Right hip pain. FINDINGS: Joint space is preserved. Mild osteophytosis. Femoral head contour is maintained. Small norberto unt of heterotopic ossification adjacent to the greater trochanter. No acute fracture, dislocation, or aggressive osseous erosions. IMPRESSION: VERY MILD DEGENERATIVE CHANGES RIGHT HIP.
--- NOTE | 2018-08-06 16:52 | SJPRAD ---
Cervical spine 3 views HISTORY: Neck pain. FINDINGS: Vertebral heights and alignment are maintained. Osteophytosis most pronounced at the C4-5-6 levels. Cervicothoracic junction is intact. No acute fracture, dislocation, or aggressive osseous erosions. IMPRESSION: Degenerative changes cervical spine. No acute osseous abnormalities are demonstrated.
== END 2018-08-06 16:22 | disposition home or self-care (01) ==
LOC: MWLC RAD 16:21
PROVIDERS: ATTEND Internal Medicine Geriatric Medicine
DX: M25.551 Pain in right hip (principal); M54.2 Cervicalgia; M47.812 Spondylosis without myelopathy or radiculopathy, cervical region; M16.11 Unilateral primary osteoarthritis, right hip

== ENCOUNTER 2018-09-20 20:30 | Outpatient (CLI) | payer MEDICARE, MEDICAID | END 2018-09-20 20:31 | disposition home or self-care (01) | LOC: SLEEPLAB 20:30 | PROVIDERS: ATTEND Internal Medicine Cardiovascular Disease | DX: G47.33 Obstructive sleep apnea (adult) (pediatric) (principal); R53.83 Other fatigue; K21.9 Gastro-esophageal reflux disease without esophagitis; R06.83 Snoring; I25.10 Atherosclerotic heart disease of native coronary artery without angina pectoris; I10 Essential (primary) hypertension | CPT/HCPCS: 95810 ==

== ENCOUNTER 2018-11-11 09:20 | Outpatient (CLI) | payer MEDICARE, MEDICAID ==
--- NOTE | 2018-11-11 11:24 | CT ---
CT chest with IV contrast HISTORY: Right breast cancer. Restaging. COMPARISON: 05/09/2018. FINDINGS: Calcified granulomata are stable. No parenchymal lung mass. No pleural fluid, pneumothorax, or mediastinal adenopathy. Parenchymal scarring of the right breast is stable. Degenerative changes throughout the thoracic spin e. Within the partially visualized upper abdomen, marked distention of the gallbladder is similar to the previous exam. IMPRESSION: No CT evidence of metastatic disease of the chest.
[2018-11-11] MEDS ORDERED: Iopamidol 370 76% 100 ML VIAL ONE (13:14)
--- NOTE | 2018-11-11 15:08 | NM ---
WHOLE BODY BONE SCAN: HISTORY: Right breast cancer. Secondary malignant neoplasm of bone RADIOPHARMACEUTICAL: 30 mCi technetium 99m-MDP injected intravenously COMPARISON: None CORRELATION: CT chest from same date FINDINGS: There scattered degenerative activity in the appendicular skeleton. Periodontal disease is seen. No other abnormal areas of tracer localization are seen in the skeleton to suggest metastatic disease . Tracer excretion through the kidneys is within normal limits. IMPRESSION: No scintigraphic evidence of osseous metastatic disease.
== END 2018-11-11 09:21 | disposition home or self-care (01) ==
LOC: CT 09:20
PROVIDERS: ATTEND Internal Medicine Hematology & Oncology
DX: C50.411 Malignant neoplasm of upper-outer quadrant of right female breast (principal); C79.51 Secondary malignant neoplasm of bone
CPT/HCPCS: 71260; 78306; 82565; A9503; Q9967

== ENCOUNTER 2019-04-03 15:54 | Outpatient (CLI) | payer MEDICARE, MEDICAID ==
--- NOTE | 2019-04-03 17:47 | RAD ---
EXAM: BILATERAL KNEES UPRIGHT: 04/03/19 AP and lateral views of the knees done with weightbearing. HISTORY: Left knee pain. FINDINGS: There are arthrosis changes of both knee joints, somewhat worse on the left side with evidence for so me left suprapatellar recess fluid. No acute fracture or dislocation. IMPRESSION: Minimal degenerative and osteoarthrosis changes of both knee joints with some suprapatellar recess fl uid on the left. No acute fracture or dislocation. POS: TPC
== END 2019-04-03 15:55 | disposition home or self-care (01) ==
LOC: BICRAD 15:54
PROVIDERS: ATTEND Family Medicine
DX: M25.562 Pain in left knee (principal); M17.0 Bilateral primary osteoarthritis of knee
CPT/HCPCS: 73565

== ENCOUNTER 2019-04-17 09:37 | Outpatient (CLI) | payer MEDICARE, MEDICAID ==
--- NOTE | 2019-04-17 14:16 | MRI ---
EXAM: Left knee MRI with and without contrast: HISTORY: M25.562 acute medial knee pain and infrapatellar pain History of bone metastatic breast cancer COMPARISON: None FINDINGS: Multiplanar, multisequence MRI examination of the knees performed. Moderate knee joint effusion with some suprapatellar recess distention. Tricompartment cartilage loss most marked involving the patellar cartilage with some subchondral cyst ic changes as well as medial and lateral compartments with some subchondral cystic changes of the lateral femoral condyle Medial meniscus: Unremarkable. Lateral meniscus: Unremarkable. Anterior cruciate ligament:Intact. Posterior cruciate ligament: Intact. Medial collateral ligament complex: Intact. Lateral collateral ligament complex: Intact. Quadriceps and patellar tendons: Intact. Extensor mechanism: Slight flattening of the superior trochlear groove possibly mild patellar trochle ar dysplasia. No evidence for acute osteochondral defect or abnormal marrow signal. No evidence for metastatic focu s within the knee. IMPRESSION: No evidence for significant acute internal derangement of the knee.
== END 2019-04-17 09:38 | disposition home or self-care (01) ==
LOC: SCSMRI 09:37
PROVIDERS: ATTEND Orthopaedic Surgery
DX: M25.562 Pain in left knee (principal)
CPT/HCPCS: 82565

== ENCOUNTER 2019-05-12 09:24 | Outpatient (CLI) | payer MEDICARE, MEDICAID ==
--- NOTE | 2019-05-12 10:34 | CT ---
CT Chest W Con HISTORY: Malignant neoplasm of the upper outer quadrant of the right female breast. Secondary maligna nt neoplasm of bone. COMPARISON: 11/11/2018. FINDINGS: No mediastinal, hilar or axillary mass or lymphadenopathy is seen. No pleural or pericardial effusion s are identified. No pneumothoraces, focal areas of consolidation or noncalcified lung nodules or masses are identified. Postop changes in the right breast are again seen. There are degenerative [place] ges in the spine. Upper abdominal tomograms demonstrate a stable 1 cm left adrenal nodule. IMPRESSION: Stable exam.
[2019-05-12] MEDS ORDERED: Iopamidol 370 76% 100 ML VIAL ONE (13:36)
--- NOTE | 2019-05-12 13:40 | NM ---
WHOLE BODY BONE SCAN: HISTORY: Right breast cancer. Malignant neoplasm upper outer quadrant of the right female breast. Sec ondary malignant neoplasm of bone. RADIOPHARMACEUTICAL: 30 mCi technetium 99m-MDP injected intravenously COMPARISON:11/11/2018 CORRELATION: CT chest from same date FINDINGS: There scattered degenerative activity in the appendicular skeleton. No other abnormal areas of tracer localization are seen in the skeleton to suggest metastatic disease . Tracer excretion through the kidneys is within normal limits. IMPRESSION: No scintigraphic evidence of osseous metastatic disease.
== END 2019-05-12 09:25 | disposition home or self-care (01) ==
LOC: CT 09:24
PROVIDERS: ATTEND Internal Medicine Hematology & Oncology
DX: C50.411 Malignant neoplasm of upper-outer quadrant of right female breast (principal); C79.51 Secondary malignant neoplasm of bone
CPT/HCPCS: 71260; 78306; 82565; A9503; Q9967

== ENCOUNTER 2019-11-18 08:34 | Outpatient (CLI) | payer MEDICARE, MEDICAID ==
[2019-11-18 09:54] LABS: Estimated GFR-MDRD - POC Greater than 90
--- NOTE | 2019-11-18 13:48 | MRI ---
EXAM: MRI Lower Ext Jt Rt W WO Con DATE: 11/18/2019 1:40 PM INDICATION: History of breast cancer with abnormal bone scan uptake involving the right acetabulum COMPARISON: Whole body bone scan dated November 10, 2019 FINDING: Multiplanar multisequence MR images were obtained of the right hip with and without contras t utilizing 19 cc of MultiHance. There is a 2.5 cm enhancing lesion involving the superior right acetabular roof consistent with osseo us metastatic lesion. There is mild degenerative arthrosis involving the right hip. There is mild tendinosis of the right gluteus minimus and medius with mild trochanteric bursitis. No iliopsoas burs itis is evident. No enlarged lymph node is evident. No pathologic fracture is evident. IMPRESSION:2.6 cm enhancing lesion in the superior right acetabulum is suspicious for solitary osseou s metastatic disease. Mild right gluteus minimus and medius tendinosis with mild trochanteric bursitis.
== END 2019-11-18 08:35 | disposition home or self-care (01) ==
LOC: SCSMRI 08:34
PROVIDERS: ATTEND Internal Medicine Hematology & Oncology
DX: M25.551 Pain in right hip (principal); C50.411 Malignant neoplasm of upper-outer quadrant of right female breast; C79.51 Secondary malignant neoplasm of bone; R93.7 Abnormal findings on diagnostic imaging of other parts of musculoskeletal system; M25.851 Other specified joint disorders, right hip; M70.62 Trochanteric bursitis, left hip; M67.952 Unspecified disorder of synovium and tendon, left thigh
CPT/HCPCS: 82565

== ENCOUNTER 2020-01-10 08:31 | Inpatient (IN) | payer MEDICARE, MEDICAID ==
[2020-01-10] MEDS ORDERED: Nitroglycerin 2% Ointment 1 INCH/1 GM Packet ONE (08:51)
[2020-01-10] MEDS ORDERED: Aspirin Chewable 81 MG TAB ONE (08:51)
[2020-01-10 09:05] LABS: Hemoglobin 12.1 g/dL (12.0-16.0); Mean Corpuscular HGB CONC 34.9 g/dL (32.0-36.0); Mean Corpuscular Hemoglobin 30.9 pg (27.0-31.0); Mean Corpuscular Volume 88.6 fL (78.0-98.0); Red Blood Cell (RBC) Count 3.91 mill/uL (4.20-5.40); White Blood Cell (WBC) Count 3.6 thou/uL (4.8-10.8)
[2020-01-10 09:20] LABS: #Eosinphils 0.1 thou/uL (0.0-0.7); #Lymphocytes 1.6 thou/uL (1.20-3.40); #Monocytes 0.2 thou/uL (0.11-0.59); #Neutrophils 1.8 thou/uL (1.40-6.50); %Basophils 1.2 % (0.0-1.0); %Eosinophils 1.4 % (0.0-10.0); %Lymphocytes 43.2 % (21.0-51.0); %Monocytes 4.3 % (0.0-10.0); Mean Platelet Volume 7.1 fL (7.4-10.4); Platelet Count 93 thou/uL (130-400)
[2020-01-10 09:21] LABS: Anisocytosis SLIGHT = 6-15 cells (100X) (0-5/hpf); MDiff Complete? YES; Platelet Morphology Comment Appears Decreased; Polychromasia SLIGHT = 2-3 cells (100X) (0-2/hpf)
--- NOTE | 2020-01-10 09:21 | RAD ---
Exam: Chest one view HISTORY:Chest Comparison: 07/25/2018 FINDINGS: Cardiac silhouette: Normal Aorta: Atherosclerotic Pulmonary vessels: Normal Costophrenic angles: Clear LUNGS: No masses or consolidation. Pneumothorax: None Osseous abnormalities: None IMPRESSION: 1. Atherosclerosis 2. No acute cardiopulmonary process.
[2020-01-10 09:22] LABS: ALT (SGPT) 33 U/L (8-55); AST (SGOT) 29 U/L (5-34); Albumin 4.4 g/dL (3.4-4.8); Alkaline Phosphatase 56 U/L (40-110); Anion Gap 15 mmol/L (10-20); BUN (Urea Nitrogen) 17 mg/dL (9.8-20.1); Bilirubin, Total 0.6 mg/dL (0.2-1.2); Calc. Creatinine Clearance 0 mL/min (70-130); Calcium 9.4 mg/dL (7.8-10.44); Carbon Dioxide 24 mmol/L (23-31); Chloride 103 mmol/L (98-107); Estimated GFR-MDRD 50; Globulin 3.2 g/dL (2.4-3.5); Glucose 162 mg/dL (80-115); Potassium 3.5 mmol/L (3.5-5.1); Protein, Total 7.6 g/dL (6.0-8.3); Sodium 138 mmol/L (136-145)
[2020-01-10 12:16] LABS: Troponin I Less than 0.010 ng/mL (< 0.028)
[2020-01-10] MEDS ORDERED: Lidocaine Viscous Sol 2% 15 ml UD Cup ONE (12:37)
[2020-01-10] MEDS ORDERED: Milk Of Magnesia 30 ML UDCUP ONE (12:37)
[2020-01-10] MEDS ORDERED: Mag-Al 1200 mg/1200 mg/30 ML UDCUP ONE (12:38)
[2020-01-10] MEDS ORDERED: Famotidine/PF 20 mg/2ml Vial ONE (12:44)
[2020-01-10] MEDS ORDERED: Morphine 4 MG/ML VIAL ONE (13:31)
[2020-01-10] MEDS ORDERED: Ondansetron PF 4 MG/2 ML Vial ONE (13:31)
--- NOTE | 2020-01-10 14:17 | ULT ---
EXAM: US Gallbladder RUQ CLINICAL HISTORY: Pain.. COMPARISON: None. FINDINGS: Pancreas: Obscured by bowel gas Liver:Hepatic parenchyma has a normal echotexture. No hepatic masses or intrahepatic biliary dilatati on. Right hepatic lobe: 14.6 cm Gallbladder: Sludge in a distended gallbladder. Gallbladder wall is not thickened. No pericholecystic fluid. Garza's sign:Negative Portal Vein: Patent. Appropriate directional flow Bile ducts: 0.4 cm common bile duct diameter Right kidney: No hydronephrosis. Right kidney measures 5.0 x 5.6 x 11.1 cm in length. There is right renal cortical thinning. IMPRESSION: 1. Distended gallbladder without evidence of cholecystitis.
[2020-01-10] MEDS ORDERED: Dextrose 50% Abboject 50 ML SYRINGE SLOW IVP PRN (14:37)
[2020-01-10] MEDS ORDERED: Dextrose 5% in Water 1,000 ML IV PRN (14:37)
--- NOTE | 2020-01-10 14:51 | PDOC.HHP ---
Hospitalist HPI - History of Present Illness Chest pain History of Present Illness: Patient is a 64-year-old female with a history of coronary artery disease which resulted in an ST segment elevation in August 2018. The culprit vessel was determined to be a very small obtuse marginal branch that was 2 mm in diameter and about 20 mm in length with regard to the plaque. Angioplasty was performed however a stent could not be placed due to the small caliber of the vessel. The patient also has breast cancer with metastases to the right axilla and the right acetabulum. She was undergoing radiation therapy to these areas and completed out about 2-1/2 weeks ago. She reports that since that time she has had persistent low-grade nausea, anorexia and diarrhea. All of this is actually improved over the last few days. She has had normal bowel movements in the last few days. Along with this the patient has been having some pressure type discomfort in her chest. She also has a gnawing type of abdominal pain more in the epigastric area. She did follow-up with Dr. Salmeron's office. She had a stress test yesterday which was negative. She was also prescribed pantoprazole for fear that it could be related to some GI source. Patient presented to the emergency department today because of the pain. She reports that while in the emergency department she drank something and it caused her to have worsening abdominal discomfort. ED Course: The patient had a negative troponin and nonischemic EKG. She was given a GI cocktail and appeared to initially have some relief. Subsequently her symptoms became substantially worse. Repeat troponin was also negative. However, she had an ultrasound of the abdomen revealing a distended gallbladder. Hospitalist ROS - Review of Systems Constitutional: reports: sweats, malaise. denies: fever, chills Cardiovascular: reports: chest pain Gastrointestinal: reports: nausea, abdominal pain, diarrhea All other systems reviewed; all pertinent +/- noted in HPI/Subj - Medication Medications: Cetirizine HCl [Zyrtec] 10 mg PO DAILY 07/20/18 Insulin Detemir [Levemir] 20 unit SQ DAILY 07/20/18 Aspirin Chewable [Aspirin Chewable Tablet] 81 mg PO DAILY #100 tab 07/22/18 Letrozole [Femara] 2.5 mg PO DAILY tab 07/22/18 Nitroglycerin [Nitrostat] 0.4 mg SL Q5MIN PRN #20 tab 07/22/18 Rosuvastatin [Crestor] 20 mg PO HS #30 tab 07/22/18 metFORMIN [Glucophage] 1,000 mg PO BID-WM tab 07/22/18 Isosorbide Mononitrate [Imdur] 60 mg PO DAILY #30 tab 07/27/18 Losartan [Cozaar] 25 mg PO DAILY #30 tab 07/27/18 Metoprolol Succinate [Toprol XL] 12.5 mg PO DAILY #30 tab 07/27/18 Hospitalist History - Past Medical History Cardiac: reports: CAD Heme/Onc: reports: Cancer (Breast with metastases to the right acetabulum and right axilla. History of cervical cancer.) Psych: reports: Bipolar - Past Surgical History Past Surgical History: reports: Hysterectomy - Family History Other Family History: Mother had congestive heart failure. Brother had a pulmonary embolus. - Social History Smoking Status: Never smoker Alcohol: reports: None Drugs: reports: none Living Situation: Alone Activity level: independent ambulation Other Social History: Full code. Her daughter Aydee Gary would be her surrogate should that be necessary. - Exam General Appearance: NAD, awake alert General - other findings: Slightly ill-appearing Eye: PERRL, anicteric sclera Neck: supple, symmetric, no JVD, no thyromegaly, no lymphadenopathy, no carotid bruit Heart: RRR, no murmur, no gallops, no rubs, normal peripheral pulses Respiratory: CTAB, no wheezes, no rales, no ronchi, normal chest expansion, no tachypnea, normal percussion Gastrointestinal: soft, non-distended, normal bowel sounds, no palpable masses, no guarding, tender to palpation (Epigastric and right upper quadrant) Extremities: no cyanosis, no clubbing, no edema Skin: normal turgor, no lesions, no rashes Neurological: cranial nerve grossly intact, normal sensation to touch, no weakness, no focal deficits, no new deficit Musculoskeletal: normal tone, normal strength, no muscle wasting Psychiatric: normal affect, normal behavior, A&O x 3 Hospitalist Results - Labs Result Diagrams: 01/10/20 08:42 01/10/20 08:42 Lab results: WBC 3.6 thou/uL (4.8-10.8) L 01/10/20 08:42 Hgb 12.1 g/dL (12.0-16.0) 01/10/20 08:42 Hct 34.6 % (36.0-47.0) L 01/10/20 08:42 MCV 88.6 fL (78.0-98.0) 01/10/20 08:42 Plt Count 93 thou/uL (130-400) L 01/10/20 08:42 Neutrophils % 50.0 % (42.0-75.0) 01/10/20 08:42 Sodium 138 mmol/L (136-145) 01/10/20 08:42 Potassium 3.5 mmol/L (3.5-5.1) 01/10/20 08:42 Chloride 103 mmol/L (98-107) 01/10/20 08:42 Carbon Dioxide 24 mmol/L (23-31) 01/10/20 08:42 BUN 17 mg/dL (9.8-20.1) 01/10/20 08:42 Creatinine 1.11 mg/dL (0.6-1.1) H 01/10/20 08:42 Glucose 162 mg/dL (80-115) H 01/10/20 08:42 Calcium 9.4 mg/dL (7.8-10.44) 01/10/20 08:42 Total Bilirubin 0.6 mg/dL (0.2-1.2) 01/10/20 08:42 AST 29 U/L (5-34) 01/10/20 08:42 ALT 33 U/L (8-55) 01/10/20 08:42 Alkaline Phosphatase 56 U/L (40-110) 01/10/20 08:42 Troponin I Less than 0.010 ng/mL (< 0.028) 01/10/20 11:43 Serum Total Protein 7.6 g/dL (6.0-8.3) 01/10/20 08:42 Albumin 4.4 g/dL (3.4-4.8) 01/10/20 08:42 Lipase 22 U/L (8-78) 01/10/20 11:43 - EKG Interpretation EKG: Nonischemic - Radiology Interpretation US - abdomen Status: report reviewed by me (Distended gallbladder at approximately 17 cm) Hospitalist H&P A/P - Problem (1) Abdominal pain Code(s): R10.9 - UNSPECIFIED ABDOMINAL PAIN Status: Acute (2) Right upper quadrant abdominal tenderness Code(s): R10.811 - RIGHT UPPER QUADRANT ABDOMINAL TENDERNESS Status: Acute (3) Breast cancer Status: Acute (4) Nausea Code(s): R11.0 - NAUSEA Status: Acute (5) Diarrhea Code(s): R19.7 - DIARRHEA, UNSPECIFIED Status: Acute (6) CAD (coronary artery disease) Code(s): I25.10 - ATHSCL HEART DISEASE OF [place] CORONARY ARTERY W/O ANG PCTRS Status: Acute Qualifiers: Coronary Disease-Associated Artery/Lesion type: [place] artery [place] vs. transplanted heart: [place] heart Associated angina: with stable angina Qualified Code(s): I25.118 - Atherosclerotic heart disease of [place] coronary artery with other forms of angina pectoris (7) DM type 2 (diabetes mellitus, type 2) Status: Chronic Qualifiers: Diabetes mellitus termite treater insulin use: with termite treater use Diabetes mellitus complication status: with unspecified complications (8) Dyslipidemia Code(s): E78.5 - HYPERLIPIDEMIA, UNSPECIFIED Status: Chronic (9) HTN (hypertension) Code(s): I10 - ESSENTIAL (PRIMARY) HYPERTENSION Status: Chronic Qualifiers: Hypertension type: essential hypertension Qualified Code(s): I10 - Essential (primary) hypertension (10) Chest pain Code(s): R07.9 - CHEST PAIN, UNSPECIFIED Status: Resolved - Plan Plan: This patient is a 64-year-old female with a history of coronary disease related to a very small and narrow obtuse marginal branch. She had angioplasty but was not amenable to stenting. She also has breast cancer with metastases to the right axilla and the right acetabulum. She recently underwent chemotherapy and finished 2-1/2 weeks prior to admission. Since then she has had some chest pain, abdominal pain, anorexia, nausea, diarrhea. Presented to the emergency department because of chest pain related symptoms. Chest pain: Patient does not have much of a good option to treat this if it were recurrent angina related to the small vessel. However, I suspect this is not cardiac in nature. Continue on telemetry and monitored serial troponins. Abdominal pain: Certainly has a distended gallbladder but the etiology of this is unclear. May be related to her anorexia of late. Discussed with surgery. Will get CT with contrast of the abdomen and pelvis to look for possible duodenitis or colitis. HIDA scan. PPI. Nausea/anorexia: Unclear if this is related to her recent radiation therapy. Continue with fluids and PPIs. Diarrhea: Appears to largely be resolved at this point. Coronary artery disease: Continue with her aspirin statin and beta-sarah. Hypertension: Continue home meds. Hyperlipidemia: Continue statin. Diabetes mellitus: Continue with her scheduled doses of insulin as well as sliding scale. Holding Metformin due to the potential for worsening her GI symptoms. She reports her hemoglobin A1c is around 9. Breast cancer: Resume her usual home regimen. PUD prophylaxis: PPI DVT prophylaxis: Lovenox.
--- NOTE | 2020-01-10 15:28 | PDOC.HHP ---
Hospitalist Results - Labs Result Diagrams: 01/10/20 08:42 01/10/20 08:42 Lab results: WBC 3.6 thou/uL (4.8-10.8) L 01/10/20 08:42 Hgb 12.1 g/dL (12.0-16.0) 01/10/20 08:42 Hct 34.6 % (36.0-47.0) L 01/10/20 08:42 MCV 88.6 fL (78.0-98.0) 01/10/20 08:42 Plt Count 93 thou/uL (130-400) L 01/10/20 08:42 Neutrophils % 50.0 % (42.0-75.0) 01/10/20 08:42 Sodium 138 mmol/L (136-145) 01/10/20 08:42 Potassium 3.5 mmol/L (3.5-5.1) 01/10/20 08:42 Chloride 103 mmol/L (98-107) 01/10/20 08:42 Carbon Dioxide 24 mmol/L (23-31) 01/10/20 08:42 BUN 17 mg/dL (9.8-20.1) 01/10/20 08:42 Creatinine 1.11 mg/dL (0.6-1.1) H 01/10/20 08:42 Glucose 162 mg/dL (80-115) H 01/10/20 08:42 Calcium 9.4 mg/dL (7.8-10.44) 01/10/20 08:42 Total Bilirubin 0.6 mg/dL (0.2-1.2) 01/10/20 08:42 AST 29 U/L (5-34) 01/10/20 08:42 ALT 33 U/L (8-55) 01/10/20 08:42 Alkaline Phosphatase 56 U/L (40-110) 01/10/20 08:42 Troponin I Less than 0.010 ng/mL (< 0.028) 01/10/20 11:43 Serum Total Protein 7.6 g/dL (6.0-8.3) 01/10/20 08:42 Albumin 4.4 g/dL (3.4-4.8) 01/10/20 08:42 Lipase 22 U/L (8-78) 01/10/20 11:43
[2020-01-10 15:42] LABS: Troponin I Less than 0.010 ng/mL (< 0.028)
[2020-01-10] MEDS ORDERED: Iopamidol-370 76% 500 ML 1 ML ONE (15:44)
[2020-01-10 17:56] LABS: Troponin I Less than 0.010 ng/mL (< 0.028)
--- NOTE | 2020-01-10 18:28 | CT ---
ABDOMEN CT WITH CONTRAST PELVIC CT WITH CONTRAST 01/10/20 HISTORY: Gallbladder distention noted on recent ultrasound. Abdominal pain. Evaluate for colitis versus duoden itis. Right breast cancer. Right upper lobe neoplasm. CORRELATION: Chest CT 11/10/19. Chest CT 11/11/18. COMPARISON: None. FINDINGS: ABDOMEN CT: No acute abnormality in the lung bases. Normal heart size. No significant pericardial fluid. The visualized aorta has a normal caliber. No pe riaortic fat stranding. Portal vein is patent. Gallbladder is prominent. No CT evidence of cholecystitis. Appropriate enhancement of the liver, spleen, adrenal glands, and pancreas. There is a nonspecific nodule in the left adrenal gland with attenuation coefficient of 46 Hounsfield units. Left adrenal lesion is unchanged from a CT from November 11, 2018 in terms of size. On that examination, characterization is also incomplete. No gastrohepatic, retrocrural or periportal lymphadenopathy. No mesenteric mass, lymphadenopathy, free air or free fluid. Symmetric enhancement of the kidneys. There is an exophytic hypodensity emanating from the left renal cortex with attenuation coefficient of 29 Hounsfield units, measuring 1.1 x 0.9 cm. Indeterminate le claire. No evidence of right sided obstructive uropathy. There is mild dilatation of the left ureter wi th minimal periureteral fat stranding. There is no evidence of associated obstructing calculus. Howev er, there does appear to be an asymmetric soft tissue density in the left hemipelvis adjacent to the transition point of the ureter. This hypodensity is felt to represent the left ovary. Significance of the adjacent position of the left ovary is uncertain. Retrograde IVP would be beneficial. Gastric mucosal, duodenum and small bowel loops have a normal appearing. Normal ileocecal junction. S cattered fecal material in a nondistended, nondilated colon. Occasional diverticulum. No diverticulit is. Normal caliber appendix. Visualized common bile duct is grossly unremarkable PELVIC CT: Right and left ovary are noted. Uterus is surgically absent. Presacral fat is preserved. No pelvic ma ss, lymphadenopathy, free air or free fluid. There are no lytic or blastic lesions in the osseous structures. IMPRESSION: 1. Indeterminate left adrenal lesion. 2. No evidence of bowel obstruction. No evidence of small bowel or colon wall thickening. Normal caliber appendix. 3. Distended gallbladder without evidence of cholecystitis. Significance is uncertain. The visua lized common bile duct is grossly unremarkable. 4. There is a transition of the left ureter in the distal lower abdomen/left hemipelvis adjacent to the left ovary. The possibility of an intraluminal lesion cannot be excluded. Retrograde IVP is r ecommended. 5. Indeterminate lesion emanating from the lower pole of the left kidney. POS: PPP
[2020-01-10 19:57] VITALS: BMI 32.8
[2020-01-10] MEDS: ASENAPINE MALEATE 10 MG SL SCH (21:37)
[2020-01-10] MEDS: Famotidine 20 MG TAB PO SCH (21:37)
[2020-01-10] MEDS: Pantoprazole 40 MG VIAL IVP SCH (21:37)
[2020-01-10] MEDS: Insulin Glargine 23 UNITS in Pre-Filled Syringe SC SCH (21:37)
[2020-01-10] MEDS: Sodium Chloride 0.9% 1,000 ML IV SCH (21:38)
[2020-01-11 04:42] LABS: #Lymphocytes 0.9 thou/uL (1.20-3.40); #Monocytes 0.2 thou/uL (0.11-0.59); %Basophils 0.2 % (0.0-1.0); %Eosinophils 0.7 % (0.0-10.0); %Lymphocytes 44.2 % (21.0-51.0); %Monocytes 7.5 % (0.0-10.0); %Neutrophils 47.3 % (42.0-75.0); Hemoglobin 10.5 g/dL (12.0-16.0); Mean Corpuscular HGB CONC 34.8 g/dL (32.0-36.0); Mean Corpuscular Hemoglobin 31.7 pg (27.0-31.0); Mean Corpuscular Volume 91.1 fL (78.0-98.0); Mean Platelet Volume 7.3 fL (7.4-10.4); Platelet Count 72 thou/uL (130-400); RBC Distribution Width 16.5 % (11.5-14.5); Red Blood Cell (RBC) Count 3.32 mill/uL (4.20-5.40); White Blood Cell (WBC) Count 2.1 thou/uL (4.8-10.8)
[2020-01-11 05:13] LABS: ALT (SGPT) 20 U/L (8-55); AST (SGOT) 14 U/L (5-34); Albumin 3.5 g/dL (3.4-4.8); Alkaline Phosphatase 45 U/L (40-110); Anion Gap 11 mmol/L (10-20); BUN (Urea Nitrogen) 11 mg/dL (9.8-20.1); Bilirubin, Total 0.4 mg/dL (0.2-1.2); Calc. Creatinine Clearance 88 mL/min (70-130); Calcium 8.2 mg/dL (7.8-10.44); Carbon Dioxide 23 mmol/L (23-31); Chloride 109 mmol/L (98-107); Estimated GFR-MDRD 59; Globulin 2.5 g/dL (2.4-3.5); Glucose 244 mg/dL (80-115); Potassium 4.1 mmol/L (3.5-5.1); Sodium 139 mmol/L (136-145)
[2020-01-11] MEDS: HumaLOG 300 UNITS/3 ML VIAL SC PRN ×2 (05:25→17:07)
[2020-01-11] MEDS ORDERED: Enoxaparin Sodium 40 MG/0.4 ML SYRINGE SC SCH (09:00)
[2020-01-11 10:27] LABS: SARS-CoV-2 MS2 Positive; SARS-CoV-2 N Gene Negative; SARS-CoV-2 S Gene Negative; SARS-CoV-2 by NAA Not Detected (NotDetected); SARS-CoV-2 orf1ab Negative
[2020-01-11] MEDS ORDERED: Morphine 2 MG/ML VIAL SLOW IVP SCH (12:00)
--- NOTE | 2020-01-11 13:36 | NM ---
HEPATOBILIARY SCAN: HISTORY:Right upper quadrant abdominal pain. RADIOPHARMACEUTICAL: 5.1 mCi Technetium 99m Mebrofenin injected intravenously for initial imaging ser ies. 2 mCi technetium 99 Mebrofenin IV were administered for the second imaging series following morphine injection. . Pharmaceutical: 1.8 mcg of CCK was administered 30 minutes prior to injection of the radiotracer. 2 m g of morphine was administered following the first hour of imaging due to nonvisualization of the gallbladder. FINDINGS: There is normal uptake of the radiotracer from the blood pool into the liver with excretion of the ra diotracer into the biliary system. There is bowel opacification seen at the 11 minute time kamron. Throughout the first hour of imaging, no gallbladder is identified. After subsequent administration o f 2 mg of IV morphine, there was no visualization of gallbladder. IMPRESSION:Nonvisualization the gallbladder is suspicious for cystic duct obstruction and acute acalc ulous cholecystitis. Findings were called to Dr. Chavez at 1:25 PM on January 11, 2020.
[2020-01-11] MEDS: Losartan 25 MG TAB PO SCH (13:57)
[2020-01-11] MEDS: Sodium Chloride 0.9% 1,000 ML IV SCH ×2 (13:57→18:42)
[2020-01-11] MEDS: Letrozole 2.5 MG TAB PO SCH (13:57)
[2020-01-11] MEDS: Insulin Glargine 23 UNITS in Pre-Filled Syringe SC SCH ×2 (13:58→20:46)
[2020-01-11] MEDS: Famotidine 20 MG TAB PO SCH ×2 (13:58→20:47)
[2020-01-11] MEDS: Clopidogrel Bisulfate 75 MG TAB PO SCH (13:58)
[2020-01-11] MEDS: Pantoprazole 40 MG VIAL IVP SCH ×2 (13:59→20:47)
--- NOTE | 2020-01-11 16:13 | PDOC.HOSPP ---
- Subjective Encounter Date: 01/11/20 Encounter Time: 16:09 Subjective: Seen for follow-up regarding acalculous cholecystitis. She reports abdominal pain is better. - Objective Vital Signs & Weight: Vital Signs (12 hours) Temp Pulse Resp BP Pulse Ox 01/11/20 07:45 97.6 F 58 L 17 116/65 97 Weight Weight 203 lb 3.2 oz I&O: 01/10/20 01/11/20 01/12/20 06:59 06:59 06:59 Intake Total 1350 Output Total 950 Balance 400 Result Diagrams: 01/11/20 03:51 01/11/20 03:51 Additional Labs: Accuchecks 01/11/20 01/10/20 05:19 20:14 POC Glucose 194 H 124 H Labs and MAR reviewed by ms Hospitalist ROS - Review of Systems Gastrointestinal: reports: abdominal pain. denies: nausea, vomiting, diarrhea, constipation, melena, hematochezia Genitourinary: denies: dysuria, frequency, incontinence, hematuria, retention - Medication Medications: Active Medications Generic Name Dose Route Start Last Admin Trade Name Freq PRN Reason Stop Dose Admin Clopidogrel Bisulfate 75 mg 01/11/20 09:00 01/11/20 13:58 Clopidogrel Bisulfate 75 Mg Tab PO 75 mg DAILY LASHAE Administration Famotidine 20 mg 01/10/20 21:00 01/11/20 13:58 Famotidine 20 Mg Tab PO 20 mg BID LASHAE Administration Sodium Chloride 1,000 mls @ 75 mls/hr 01/10/20 14:45 01/11/20 13:57 Normal Saline 0.9% IV 1,000 mls .[id number] LASHAE Administration Insulin Glargine 23 units/ 0.23 mls @ 0 mls/hr 01/10/20 21:00 01/10/20 21:37 Miscellaneous Medication SC 0.23 mls HS LASHAE Administration Insulin Glargine 23 units/ 0.23 mls @ 0 mls/hr 01/11/20 09:00 01/11/20 13:58 Miscellaneous Medication SC Not Given QAM LASHAE Insulin Human Lispro 0 units 01/10/20 14:37 01/11/20 05:25 Humalog 300 Units/3 Ml Vial SC 2 unit .MODERATE SLIDING SC PRN Administration Moderate Correctional Scale Isosorbide Mononitrate 60 mg 01/11/20 09:00 01/11/20 13:58 Isosorbide Mononitrate Er 60 Mg Tab PO 60 mg DAILY LASHAE Administration Letrozole 2.5 mg 01/11/20 09:00 01/11/20 13:57 Letrozole 2.5 Mg Tab PO 2.5 mg DAILY LASHAE Administration Losartan Potassium 25 mg 01/11/20 09:00 01/11/20 13:57 Losartan 25 Mg Tab PO 25 mg DAILY LASHAE Administration Metoprolol Succinate 12.5 mg 01/11/20 09:00 01/11/20 13:58 Metoprolol Succinate Xl 25 Mg Tab PO 12.5 mg DAILY LASHAE Administration Pantoprazole Sodium 40 mg 01/10/20 21:00 01/11/20 13:59 Pantoprazole 40 Mg Vial IVP 40 mg Q12HR LASHAE Administration Asenapine Maleate [ 0 each 01/10/20 21:00 01/10/20 21:37 Saphris] 10 Mg Tab. SL 1 each Subl HS LASHAE Administration - Exam General - other findings: Obese Eye: anicteric sclera ENT: moist mucosa Neck: supple Heart: RRR Respiratory: CTAB Gastrointestinal: soft, no guarding, no rigidity Gastrointestinal - other findings: Mild right upper quadrant tenderness Skin: no rashes Psychiatric: normal affect, normal behavior Hosp A/P (1) Acalculous cholecystitis Code(s): K81.9 - CHOLECYSTITIS, UNSPECIFIED Status: Acute (2) CAD (coronary artery disease) Code(s): I25.10 - ATHSCL HEART DISEASE OF [place] CORONARY ARTERY W/O ANG PCTRS Status: Acute Qualifiers: Coronary Disease-Associated Artery/Lesion type: [place] artery [place] vs. transplanted heart: [place] heart Associated angina: with stable angina Qualified Code(s): I25.118 - Atherosclerotic heart disease of [place] coronary artery with other forms of angina pectoris (3) DM type 2 (diabetes mellitus, type 2) Status: Chronic Qualifiers: Diabetes mellitus termite exterminator helper insulin use: with assisted use Diabetes mellitus complication status: with unspecified complications (4) Dyslipidemia Code(s): E78.5 - HYPERLIPIDEMIA, UNSPECIFIED Status: Chronic (5) H/O malignant neoplasm of breast Code(s): Z85.3 - PERSONAL HISTORY OF MALIGNANT NEOPLASM OF BREAST Status: Chronic (6) HTN (hypertension) Code(s): I10 - ESSENTIAL (PRIMARY) HYPERTENSION Status: Chronic Qualifiers: Hypertension type: essential hypertension Qualified Code(s): I10 - Essential (primary) hypertension - Plan HIDA scan is abnormal, patient appears to have a calculus cholecystitis. General surgery service has been consulted, patient will likely have laparoscopic cholecystectomy tomorrow. We will hold Lovenox and start SCDs. Continue Accu-Cheks and insulin sliding scale. Monitor vital signs and titrate antihypertensives as needed. Patient has chronic pancytopenia, requesting that her oncologist be notified of the drop in platelets and this admission.
--- NOTE | 2020-01-11 18:07 | PDOC.EVN ---
Event Note - Event Note Event Note: I received a communication from Dr. Renetta Street with [facility] that patient's hospitalization met criteria for inpatient stay. Accordingly, patient's status is being changed to inpatient.
[2020-01-11] MEDS: ASENAPINE MALEATE 10 MG SL SCH (21:47)
--- NOTE | 2020-01-11 21:54 | CON ---
DATE OF CONSULTATION: 01/11/2020 CHIEF COMPLAINT: Upper abdominal pain. HISTORY OF PRESENT ILLNESS: This is a 64-year-old female with a history of epigastric pain, quite severe, initially worked up as a cardiac workup which was negative. She had ultrasound which showed no gallstones, however, distended gallbladder. She now had HIDA scan showing nonvisualization consistent with acalculous cholecystitis. Given her history of diarrhea and upper abdominal pain, she had CT of the abdomen which was within normal limits. She states that she has known she had an abnormal gallbladder in the past, although she does not admit to gallstones. No previous history of jaundice or pancreatitis. Pain is described as 6/10 now in the right upper quadrant. Feels better when she sits up. Her diarrhea that she had before has resolved. PAST MEDICAL HISTORY: Includes coronary artery disease, breast cancer. PAST SURGICAL HISTORY: Hysterectomy. MEDICATIONS: See list. ALLERGIES: LISINOPRIL. SOCIAL HISTORY: No smoking, alcohol, or other drugs. PHYSICAL EXAMINATION: VITAL SIGNS: Blood pressure is 116/65, pulse 58, respirations 17, she is afebrile. HEENT: Sclerae anicteric. Oropharynx is clear. NECK: No lymphadenopathy. CHEST: Clear. HEART: Regular rate. ABDOMEN: Soft, tender right upper quadrant with localized guarding without rebound tenderness. EXTREMITIES: No ischemia or edema to extremities. LABORATORY DATA: White cell count is 2, hemoglobin is 10, platelet count is 72. Sodium 139, potassium 4.1, creatinine 0.96. ASSESSMENT: Acute acalculous cholecystitis. PLAN: Laparoscopic cholecystectomy. Risks, benefits, and alternatives discussed. She gives consent. We will do this tomorrow. Job ID: [id number]
[2020-01-12] MEDS: Sodium Chloride 0.9% 1,000 ML IV SCH ×2 (06:06→21:25)
[2020-01-12] MEDS: Famotidine 20 MG TAB PO SCH ×2 (11:48→21:25)
[2020-01-12] MEDS: Insulin Glargine 23 UNITS in Pre-Filled Syringe SC SCH ×2 (11:48→21:25)
[2020-01-12] MEDS: Clopidogrel Bisulfate 75 MG TAB PO SCH (11:48)
[2020-01-12] MEDS: Letrozole 2.5 MG TAB PO SCH (11:49)
[2020-01-12] MEDS: Losartan 25 MG TAB PO SCH (11:49)
[2020-01-12] MEDS ORDERED: Dexamethasone 20 MG/5 ML VIAL ONE (13:59)
[2020-01-12] MEDS ORDERED: Lidocaine 1% PF 5 ML VIAL ONE (13:59)
[2020-01-12] MEDS ORDERED: Ondansetron PF 4 MG/2 ML Vial ONE ×2 (13:59→17:06)
[2020-01-12] MEDS ORDERED: PROPOFOL 200 MG/20 ML VIAL ONE (13:59)
[2020-01-12] MEDS ORDERED: Rocuronium Bromide 10 MG/ML (10ML VIAL) ONE (13:59)
[2020-01-12] MEDS ORDERED: Glycopyrrolate 0.2 MG/ML 5 ML SYRINGE ONE (13:59)
[2020-01-12] MEDS ORDERED: Ketorolac Tromethamine 30 MG/ML VIAL ONE (13:59)
[2020-01-12] MEDS ORDERED: Lidocaine 1% w/Epinephrine 1:100K 20 ML VIAL ONE (15:06)
[2020-01-12] MEDS ORDERED: Bupivacaine 0.25% HCL 30 ML VIAL ONE (15:06)
[2020-01-12] MEDS ORDERED: Fentanyl 100 MCG/2 ML VIAL ONE ×2 (15:15→15:24)
--- NOTE | 2020-01-12 16:12 | PDOC.HOSPP ---
- Subjective Encounter Date: 01/12/20 Encounter Time: 06:30 Subjective: Pt seen for followup re: acalculous cholecystitis. Reports she did not sleep well last night. - Objective Vital Signs & Weight: Vital Signs (12 hours) Temp Pulse Resp BP Pulse Ox 01/12/20 11:45 98.0 F 71 16 115/74 97 01/12/20 08:09 98.1 F 71 16 97/63 96 01/12/20 05:31 97.8 F 68 18 122/69 99 Weight Weight 203 lb 3.2 oz I&O: 01/11/20 01/12/20 01/13/20 06:59 06:59 06:59 Intake Total 1350 1140 Output Total 950 Balance 400 1140 Result Diagrams: 01/11/20 03:51 01/11/20 03:51 Additional Labs: Accuchecks 01/12/20 01/12/20 01/12/20 11:52 11:52 05:40 POC Glucose 103 H 103 H 92 01/11/20 01/11/20 20:45 16:29 POC Glucose 173 H 177 H I reviewed labs and [place] [facility]ist ROS - Review of Systems Cardiovascular: denies: chest pain, palpitations, orthopnea, paroxysmal noc. dyspnea, edema, light headedness Gastrointestinal: reports: nausea, abdominal pain. denies: vomiting, diarrhea, constipation, melena, hematochezia - Medication Medications: Active Medications Generic Name Dose Route Start Last Admin Trade Name Freq PRN Reason Stop Dose Admin Clopidogrel Bisulfate 75 mg 01/11/20 09:00 01/12/20 11:48 Clopidogrel Bisulfate 75 Mg Tab PO Not Given DAILY LASHAE Famotidine 20 mg 01/10/20 21:00 01/12/20 11:48 Famotidine 20 Mg Tab PO Not Given BID LASHAE Sodium Chloride 1,000 mls @ 75 mls/hr 01/10/20 14:45 01/12/20 06:06 Normal Saline 0.9% IV 1,000 mls .[id number] LASHAE Administration Insulin Glargine 23 units/ 0.23 mls @ 0 mls/hr 01/10/20 21:00 01/11/20 20:46 Miscellaneous Medication SC 0.23 mls HS LASHAE Administration Insulin Glargine 23 units/ 0.23 mls @ 0 mls/hr 01/11/20 09:00 01/12/20 11:48 Miscellaneous Medication SC Not Given QAM [facility] Insulin Human Lispro 0 units 01/10/20 14:37 01/11/20 17:07 Humalog 300 Units/3 Ml Vial SC 2 unit .MODERATE SLIDING SC PRN Administration Moderate Correctional Scale Isosorbide Mononitrate 60 mg 01/11/20 09:00 01/12/20 11:48 Isosorbide Mononitrate Er 60 Mg Tab PO Not Given DAILY LASHAE Letrozole 2.5 mg 01/11/20 09:00 01/12/20 11:49 Letrozole 2.5 Mg Tab PO Not Given DAILY LASHAE Losartan Potassium 25 mg 01/11/20 09:00 01/12/20 11:49 Losartan 25 Mg Tab PO Not Given DAILY LASHAE Metoprolol Succinate 12.5 mg 01/11/20 09:00 01/12/20 08:18 Metoprolol Succinate Xl 25 Mg Tab PO 12.5 mg DAILY LASHAE Administration Pantoprazole Sodium 40 mg 01/10/20 21:00 01/11/20 20:47 Pantoprazole 40 Mg Vial IVP 40 mg Q12HR LASHAE Administration Asenapine Maleate [ 0 each 01/10/20 21:00 01/11/20 21:47 Saphris] 10 Mg Tab. SL 1 each Subl HS LASHAE Administration - Exam General Appearance: awake alert Eye: anicteric sclera ENT: moist mucosa Neck: supple Heart: RRR Respiratory: CTAB Gastrointestinal: soft, non-tender Extremities: no edema Skin: no rashes Psychiatric: normal affect, normal behavior Hosp A/P (1) Acalculous cholecystitis Code(s): K81.9 - CHOLECYSTITIS, UNSPECIFIED Status: Acute (2) CAD (coronary artery disease) Code(s): I25.10 - ATHSCL HEART DISEASE OF [place] CORONARY ARTERY W/O ANG PCTRS Status: Acute Qualifiers: Coronary Disease-Associated Artery/Lesion type: [place] artery [place] vs. transplanted heart: [place] heart Associated angina: with stable angina Qualified Code(s): I25.118 - Atherosclerotic heart disease of [place] coronary artery with other forms of angina pectoris (3) DM type 2 (diabetes mellitus, type 2) Status: Chronic Qualifiers: Diabetes mellitus correction insulin use: with buttermilk drier operator use Diabetes mellitus complication status: with unspecified complications (4) Dyslipidemia Code(s): E78.5 - HYPERLIPIDEMIA, UNSPECIFIED Status: Chronic (5) HTN (hypertension) Code(s): I10 - ESSENTIAL (PRIMARY) HYPERTENSION Status: Chronic Qualifiers: Hypertension type: essential hypertension Qualified Code(s): I10 - Essential (primary) hypertension (6) H/O malignant neoplasm of breast Code(s): Z85.3 - PERSONAL HISTORY OF MALIGNANT NEOPLASM OF BREAST Status: Chronic - Plan Pt to go for lap rima today. Continue Accu-Cheks and insulin sliding scale. HTN controlled and stable.
[2020-01-12] MEDS ORDERED: HYDROcodone/Acetaminophen 7.5/325 mg Tablet PO PRN ×2 (16:21)
[2020-01-12] MEDS ORDERED: Morphine 2 MG/ML VIAL SLOW IVP PRN (16:21)
[2020-01-12] MEDS ORDERED: Morphine 4 MG/ML VIAL SLOW IVP PRN (16:21)
[2020-01-12] MEDS ORDERED: Ondansetron HCl/PF 4 MG/2 ML Vial IVP PRN (16:31)
[2020-01-12] MEDS: Pantoprazole 40 MG VIAL IVP SCH ×2 (17:06→21:25)
[2020-01-12] MEDS: ASENAPINE MALEATE 10 MG SL SCH (21:26)
--- NOTE | 2020-01-12 22:36 | OP ---
DATE OF PROCEDURE: 01/12/2020 PREOPERATIVE DIAGNOSIS: Acute cholecystitis. POSTOPERATIVE DIAGNOSIS: Acute cholecystitis. PROCEDURE PERFORMED: Laparoscopic cholecystectomy. ANESTHESIA: General. ESTIMATED BLOOD LOSS: Minimal. COMPLICATIONS: None. SPECIMEN: Gallbladder. FINDINGS: Acute cholecystitis. PROCEDURE IN DETAIL: The patient was taken to the operating room and laid supine on the operating room table. After general anesthetic was obtained, the abdomen was prepped and draped in a sterile fashion. A curved incision was made below the umbilicus. Cautery was used to dissect down to the umbilical fascia. Umbilical fascia was incised and held up using a Hu. The abdominal cavity was entered using a Fanny clamp. Holding stitch of Vicryl was placed on each side of the fascia. Downey trocar was placed. High-flow pneumoperitoneum was obtained. An upper midline 5 mm port and 2 right upper quadrant 5 mm ports were placed under direct camera visualization. The gallbladder was retracted from the gallbladder fossa. The peritoneum of the gallbladder was opened anteriorly and posteriorly. The critical view triangle was seen showing only the cystic duct and cystic artery branching from medial to lateral. There were no other branching structures. Two clips were placed proximally on the cystic duct and one laterally. It was cut using laparoscopic scissors. The cystic artery was taken in the same way. Electrocautery was then used to dissect the gallbladder out of the gallbladder fossa. The gallbladder was placed in an Endo catch bag and brought out through the Downey. There was no bleeding or bile in the liver bed. The cystic duct stump and cystic artery stump were intact, without evidence of extravasation or bleeding. All port sites were infiltrated using local anesthesia. All ports were removed under camera visualization. Pneumoperitoneum was let down. The Vicryl was used to close the fascial defect below the umbilicus. All incisions were irrigated and closed using 4-0 Monocryl and Dermabond. The patient was en route to Recovery in stable condition. All instrument counts, needle counts and lap counts were correct. Job ID: [id number]
[2020-01-13] MEDS ORDERED: Benzonatate 100 MG CAP PO PRN (02:27)
[2020-01-13] MEDS: Acetaminophen 325 MG TAB PO PRN ×2 (04:41→09:18)
[2020-01-13] MEDS: HumaLOG 300 UNITS/3 ML VIAL SC PRN (05:46)
[2020-01-13 05:49] LABS: Anion Gap 13 mmol/L (10-20); BUN (Urea Nitrogen) 9 mg/dL (9.8-20.1); Calc. Creatinine Clearance 95 mL/min (70-130); Carbon Dioxide 18 mmol/L (23-31); Chloride 112 mmol/L (98-107); Estimated GFR-MDRD 64; Glucose 304 mg/dL (80-115); Potassium 4.6 mmol/L (3.5-5.1); Sodium 138 mmol/L (136-145)
[2020-01-13 06:02] LABS: Band 1 % (5-11); Hemoglobin 10.9 g/dL (12.0-16.0); Lymphocytes 28 % (21-51); MDiff Complete? YES; Mean Corpuscular HGB CONC 33.7 g/dL (32.0-36.0); Mean Corpuscular Hemoglobin 31.2 pg (27.0-31.0); Mean Corpuscular Volume 92.4 fL (78.0-98.0); Mean Platelet Volume 8.1 fL (7.4-10.4); Monocytes 5 % (0-10); Neutrophil 66 % (42-75); Nucleated RBC 1 % (0); Platelet Count 84 thou/uL (130-400); Platelet Morphology Comment Appears Decreased; RBC Distribution Width 16.6 % (11.5-14.5); Red Blood Cell (RBC) Count 3.51 mill/uL (4.20-5.40); White Blood Cell (WBC) Count 2.8 thou/uL (4.8-10.8)
[2020-01-13 07:39] VITALS: BP 123/87; TEMP 98.9
--- NOTE | 2020-01-13 08:49 | PDOC.GSPN ---
Surgery Progress Note: Subj - Subjective Patient reports: no new complaints Surgery Progress Note: Obj - Vital signs Vital signs: Vital Signs - Most Recent Temp Pulse Resp BP Pulse Ox 98.9 F 80 16 123/87 97 01/13/20 07:38 01/13/20 07:38 01/13/20 07:38 01/13/20 07:38 01/13/20 07:38 - Physical Exam Cardiovascular: regular rate and rhythm Respiratory: clear to auscultation Abdomen: soft, appropriately tender Wound: healing well Surgery Progress Note: Results - Labs Result Diagrams: 01/13/20 05:04 01/13/20 05:04 Lab results: Laboratory Results - last 12 hr 01/12/20 01/13/20 01/13/20 20:51 05:04 05:04 WBC 2.8 L RBC 3.51 L Hgb 10.9 L Hct 32.5 L MCV 92.4 MCH 31.2 H MCHC 33.7 RDW 16.6 H Plt Count 84 L MPV 8.1 Neutrophils % (Manual) 66 Band Neuts % (Manual) 1 L Lymphocytes % (Manual) 28 Monocytes % (Manual) 5 Nucleated RBCs # (Man) 1 H Plt Morphology Comment Appears Decreased L Sodium 138 Potassium 4.6 Chloride 112 H Carbon Dioxide 18 L Anion Gap 13 BUN 9 L Creatinine 0.89 Estimated GFR (MDRD) 64 Glucose 304 H POC Glucose 265 H Calcium 8.0 01/13/20 05:32 WBC RBC Hgb Hct MCV MCH MCHC RDW Plt Count MPV Neutrophils % (Manual) Band Neuts % (Manual) Lymphocytes % (Manual) Monocytes % (Manual) Nucleated RBCs # (Man) Plt Morphology Comment Sodium Potassium Chloride Carbon Dioxide Anion Gap BUN Creatinine Estimated GFR (MDRD) Glucose POC Glucose 340 H Calcium Surgery Progress Note: A/P - Problem (1) Acalculous cholecystitis Current Visit: Yes Code(s): K81.9 - CHOLECYSTITIS, UNSPECIFIED Status: Acute - Plan Plan: POD 1 lap rima -DC -I sent marvin phan and arlene to [facility]
[2020-01-13] MEDS: Insulin Glargine 23 UNITS in Pre-Filled Syringe SC SCH (09:02)
[2020-01-13] MEDS: Pantoprazole 40 MG VIAL IVP SCH (09:02)
[2020-01-13] MEDS: Letrozole 2.5 MG TAB PO SCH (09:02)
[2020-01-13] MEDS: Losartan 25 MG TAB PO SCH (09:02)
[2020-01-13] MEDS: Famotidine 20 MG TAB PO SCH (09:03)
[2020-01-13] MEDS: Clopidogrel Bisulfate 75 MG TAB PO SCH (09:03)
--- NOTE | 2020-01-13 12:23 | PDOC.DS.DS ---
Provider - Provider Date of Admission: 01/11/20 18:07 Date of Discharge: 01/13/20 Admitting Provider: Guy Harris MD Consultations: General Surgery (Dr. Martinez) Primary Care Physician: Salome Lane Course - Hospital Course Hospital Course: Discharge diagnosis: 1. Acute cholecystitis 2. Pancytopenia 3. COVID-19 PCR test negative Hospital course: Patient is a pleasant 64-year-old lady who was admitted to the hospital on January 10, 2020 for chest pain and abdominal pain. It was suspected that her chest pain was noncardiac in nature. She had a HIDA scan, and nonvisualization of the gallbladder was suspicious for cystic duct obstruction and acute acalculous cholecystitis. General surgery service was consulted and she underwent laparoscopic cholecystectomy on January 12, 2020. She is being discharged home in a stable condition. Many thanks for allowing me to participate in your patient's care. Please feel free to contact me with any questions or concerns. - Labs Lab Results: 01/13/20 05:04 01/13/20 05:04 Abnormal Lab Results - Last 48 hrs 01/13/20 05:04: Chloride 112 H, Carbon Dioxide 18 L, BUN 9 L 01/13/20 05:04: WBC 2.8 L, RBC 3.51 L, Hgb 10.9 L, Hct 32.5 L, MCH 31.2 H, RDW 16.6 H, Plt Count 84 L, Band Neuts % (Manual) 1 L, Nucleated RBCs # (Man) 1 H, Plt Morphology Comment Appears Decreased L - Physical Exam Vitals: Vital Signs (12 hours) Temp Pulse Resp BP Pulse Ox 01/13/20 07:38 98.9 F 80 16 123/87 97 01/13/20 03:30 97.9 F 80 18 95/63 97 Weight Weight 203 lb 3.2 oz Physical Exam: The patient was seen and examined on the day of discharge. Patient denies chest pain or shortness of breath. Vital signs are stable. S1 and S2 are heard. Lungs are clear to auscultation bilaterally. Problem - Problem (1) Acalculous cholecystitis Code(s): K81.9 - CHOLECYSTITIS, UNSPECIFIED Status: Acute (2) CAD (coronary artery disease) Code(s): I25.10 - ATHSCL HEART DISEASE OF [place] CORONARY ARTERY W/O ANG PCTRS Status: Acute Qualifiers: Coronary Disease-Associated Artery/Lesion type: [place] artery [place] vs. transplanted heart: [place] heart Associated angina: with stable angina Qualified Code(s): I25.118 - Atherosclerotic heart disease of [place] coronary artery with other forms of angina pectoris (3) DM type 2 (diabetes mellitus, type 2) Status: Chronic Qualifiers: Diabetes mellitus chcf insulin use: with terminal operator use Diabetes mellitus complication status: with unspecified complications (4) Dyslipidemia Code(s): E78.5 - HYPERLIPIDEMIA, UNSPECIFIED Status: Chronic (5) HTN (hypertension) Code(s): I10 - ESSENTIAL (PRIMARY) HYPERTENSION Status: Chronic Qualifiers: Hypertension type: essential hypertension Qualified Code(s): I10 - Essential (primary) hypertension (6) H/O malignant neoplasm of breast Code(s): Z85.3 - PERSONAL HISTORY OF MALIGNANT NEOPLASM OF BREAST Status: Chronic - Time spent with Patient (mins): 20 Plan - Discharge Medications Home Medications: Medication Instructions Recorded Confirmed Type Asenapine Maleate [Saphris] 1 tab PO HS 07/20/18 01/10/20 History Cetirizine HCl [Zyrtec] 10 mg PO DAILY PRN 07/20/18 01/10/20 History Insulin Detemir [Levemir] 20 unit SQ DAILY 07/20/18 01/10/20 History Palbociclib [Ibrance] 1 tab PO DAILY 07/20/18 01/10/20 History Aspirin Chewable [Aspirin Chewable 81 mg PO DAILY #100 tab 07/22/18 01/10/20 Rx Tablet] Letrozole [Femara] 2.5 mg PO DAILY tab 07/22/18 01/10/20 Rx Nitroglycerin [Nitrostat] 0.4 mg SL Q5MIN PRN #20 tab 07/22/18 01/10/20 Rx Rosuvastatin [Crestor] 20 mg PO HS #30 tab 07/22/18 01/10/20 Rx metFORMIN [Glucophage] 1,000 mg PO BID-WM tab 07/22/18 01/10/20 Rx Isosorbide Mononitrate [Imdur] 60 mg PO DAILY #30 tab 07/27/18 01/10/20 Rx Losartan [Cozaar] 25 mg PO DAILY #30 tab 07/27/18 01/10/20 Rx Clopidogrel Bisulfate [Clopidogrel] 75 mg PO DAILY 01/10/20 01/10/20 History Dulaglutide [Trulicity] 1 syringe SQ WILLCALL 01/10/20 01/10/20 History Ezetimibe [Zetia] 10 mg PO DAILY 01/10/20 01/10/20 History Metoprolol Succinate [Toprol XL] 12.5 mg PO DAILY 01/10/20 01/10/20 History Allergies: lisinopril Allergy (Verified 07/19/18 22:41) COUGH - Discharge Instructions Discharge Instructions:: FOCUS: Transition from Acute Care after Discharge GOAL: Successful transition to care in the community YOUR TASKS: (1) review all information outlined in your discharge packet (2) follow any instructions outlined in your discharge packet (3) contact your primary care provider if you have questions or need additional assistance Activity:: Activity as Tolerated Nourishment:: Heart Healthy Diet - Follow up Plan Referrals: Salome Lane MD [Primary Care Provider] - 3 Days Bronson Martinez MD [Active] - 14 Days Disposition: HOME Quality - Care Measures CORE MEASURES:: N/A
--- NOTE | 2020-01-16 01:06 | PQF ---
CLINICAL DOCUMENTATION CLARIFICATION FORM: Dear : Mau Tovar MD Date / Time: 01/16/2020 Please exercise your independent, professional judgment in responding to the clarification form. Clinical indicators are provided on the bottom of this form for your review Please check appropriate box(es): [ x ] Pancytopenia [ ] Pancytopenia due to Chemotherapy/antineoplastic drugs [ ] Pancytopenia due to other drug (please specify if known): [ ] Pancytopenia due to exposure to toxins/pollutants (please specify substance if known): [ ] Pancytopenia due to Aplastic Anemia [ ] Pancytopenia due to Leukemia [ ] Congenital Pancytopenia [ ] Other diagnosis (Please specify if any) [ ] Unable to determine In addition, please specify: Present on Admission (POA): [ x ] Yes [ ] No [ ] Unable to determine Physician Signature: Date/Time: For continuity of documentation, please document condition throughout progress notes and discharge summary. Thank You. To be completed by CDI/Coding staff for physician review: Present Clinical Indicators - Signs / Symptoms / Labs Results and Location in Medical Record [x] Decreased WBC WBC - 2.1 laboratory on 01/10 [x] Decreased RBC / decreased H/H RBC-3.32, Hgb-10.5, Hct-30.3 laboratory on 01/10 [x] Decreased PLT 72 - Laboratory on 01/10 [x] Chronic pancytopenia Hospitalist PN on 01/10 [ ] Generalized weakness Present Risk Factors Results and Location in Medical Record [x] Breast cancer with metastases to the right axilla and the right acetabulum H&P on 01/09 [ ] HIV Disease [x] Recently underwent chemotherapy and finished 2-1/2 weeks prior to admission H&P on 01/09 [ ] Drugs [ ] Myelodysplastic Syndrome [ ] Exposure to Toxins/Pollutants Present Treatments Results and Location in Medical Record [x] Letrozole 2.5 mg Medication from 01/10 to 01/12 [ ] Stop meds causing Pancytopenia [ ] Bone marrow biopsy [ ] CDS/Marketing Outreach Coordinator Signature: AAS Phone #: Date/Time: 01/16/2020 This is a permanent part of the Medical Record [facility]
--- NOTE | 2020-01-17 17:03 | EKG ---
Test Reason : Blood Pressure : / mmHG Vent. Rate : 073 BPM Atrial Rate : 073 BPM P-R Int : 166 ms QRS Dur : 082 ms QT Int : 412 ms P-R-T Axes : 058 003 015 degrees QTc Int : 453 ms Normal sinus rhythm Low voltage QRS Possible Inferior infarct , age undetermined Abnormal ECG Confirmed by WENDIE BRYANT DO ([id number]), offline editor LEANA TANG ([id number]) on 01/17/2020 5:03:04 PM Referred By: Confirmed By:WENDIE BRYANT DO
--- NOTE | 2020-01-17 17:03 | EKG ---
Test Reason : Blood Pressure : / mmHG Vent. Rate : 075 BPM Atrial Rate : 075 BPM P-R Int : 162 ms QRS Dur : 080 ms QT Int : 406 ms P-R-T Axes : 059 006 018 degrees QTc Int : 453 ms Normal sinus rhythm Low voltage QRS Inferior infarct , age undetermined Abnormal ECG Confirmed by WENDIE BRYANT DO ([id number]), editor managing director LEANA TANG ([id number]) on 01/17/2020 5:02:27 PM Referred By: Confirmed By:WENDIE BRYANT DO
== END 2020-01-13 11:38 | disposition home or self-care (01) | DRG 418 ==
LOC: ERS 08:31 → 2NO 14:23 → OBSVTOIN 01-11 18:07 → SURG A 01-11 18:47
PROVIDERS: ADMIT Internal Medicine; ATTEND Internal Medicine
PROC: 0FT44ZZ Resection of Gallbladder, Percutaneous Endoscopic Approach (ICD-10-PCS; principal; 2020-01-12)
DX: K81.0 Acute cholecystitis (principal); D61.818 Other pancytopenia; R07.9 Chest pain, unspecified; E11.9 Type 2 diabetes mellitus without complications; E78.00 Pure hypercholesterolemia, unspecified; I10 Essential (primary) hypertension; Z20.828 Contact with and (suspected) exposure to other viral communicable diseases; F31.9 Bipolar disorder, unspecified; I25.10 Atherosclerotic heart disease of native coronary artery without angina pectoris; I25.2 Old myocardial infarction; Z90.710 Acquired absence of both cervix and uterus; Z85.830 Personal history of malignant neoplasm of bone; Z88.8 Allergy status to other drugs, medicaments and biological substances; Z79.899 Other long term (current) drug therapy; Z79.84 Long term (current) use of oral hypoglycemic drugs; Z92.21 Personal history of antineoplastic chemotherapy
CPT/HCPCS: 36415; 36416; 71045; 74177; 76705; 78227; 80048; 80053; 83690; 84484; 85025; 85379; 87635; 88304; 93005; 96374; 96375; 96376; A9537; C9113; G0378; J0690; J1100; J1815; J1885; J2270; J2405; J2704; J3010; Q9967; S0020; S0028; U0003

== ENCOUNTER 2020-01-30 11:02 | Emergency (ER) | payer MEDICARE, MEDICAID ==
[2020-01-30] MEDS ORDERED: Ondansetron PF 4 MG/2 ML Vial ONE ×2 (11:57→14:13)
[2020-01-30 12:43] LABS: #Eosinphils 0.1 thou/uL (0.0-0.7); #Lymphocytes 1.2 thou/uL (1.20-3.40); #Monocytes 0.4 thou/uL (0.11-0.59); #Neutrophils 2.4 thou/uL (1.40-6.50); %Basophils 0.7 % (0.0-1.0); %Eosinophils 1.7 % (0.0-10.0); %Lymphocytes 30.1 % (21.0-51.0); %Monocytes 8.9 % (0.0-10.0); %Neutrophils 58.7 % (42.0-75.0); Hemoglobin 11.8 g/dL (12.0-16.0); Mean Corpuscular HGB CONC 34.8 g/dL (32.0-36.0); Mean Corpuscular Hemoglobin 32.5 pg (27.0-31.0); Mean Corpuscular Volume 93.5 fL (78.0-98.0); Mean Platelet Volume 6.5 fL (7.4-10.4); Platelet Count 257 thou/uL (130-400); RBC Distribution Width 16.8 % (11.5-14.5); Red Blood Cell (RBC) Count 3.63 mill/uL (4.20-5.40); White Blood Cell (WBC) Count 4.1 thou/uL (4.8-10.8)
[2020-01-30 13:03] LABS: ALT (SGPT) 27 U/L (8-55); AST (SGOT) 24 U/L (5-34); Alkaline Phosphatase 56 U/L (40-110); Anion Gap 18 mmol/L (10-20); BUN (Urea Nitrogen) 19 mg/dL (9.8-20.1); Bilirubin, Total 0.8 mg/dL (0.2-1.2); Calc. Creatinine Clearance 0 mL/min (70-130); Calcium 8.7 mg/dL (7.8-10.44); Carbon Dioxide 20 mmol/L (23-31); Chloride 104 mmol/L (98-107); Globulin 3.2 g/dL (2.4-3.5); Glucose 175 mg/dL (80-115); Lipase 26 U/L (8-78); Potassium 4.1 mmol/L (3.5-5.1); Protein, Total 7.2 g/dL (6.0-8.3); Sodium 138 mmol/L (136-145)
[2020-01-30] MEDS ORDERED: Iopamidol-370 76% 500 ML 1 ML ONE (14:07)
--- NOTE | 2020-01-30 14:07 | CT ---
CT ABDOMEN AND PELVIS WITH IV CONTRAST: 01/30/20 HISTORY: Gallbladder removal two weeks ago. Nausea, vomiting and diarrhea. COMPARISON: 01/10/20. FINDINGS: The lung bases are clear. Interval changes of cholecystectomy are seen. The liver, spleen, pancreas, right adrenal gland and right kidney appear normal. The indeterminate 12 mm exophytic lesion from the posterior cortex of the inferior left kidney and the approximately 1 cm indeterminate left adrenal n odule are stable. No free air, free fluid, or lymphadenopathy seen in the abdomen or pelvis. The small bowel loops are not abnormally dilated. The patient is post hysterectomy. There are degenerative changes in the spine . IMPRESSION: Stable indeterminate left adrenal and renal masses. No acute process. POS: AH
--- NOTE | 2020-02-14 16:24 | EKG ---
Test Reason : Blood Pressure : / mmHG Vent. Rate : 069 BPM Atrial Rate : 069 BPM P-R Int : 158 ms QRS Dur : 082 ms QT Int : 408 ms P-R-T Axes : 048 015 021 degrees QTc Int : 437 ms Normal sinus rhythm Normal ECG Confirmed by SHARI LIN M.D. ([id number]), photography editor LEANA TANG ([id number]) on 02/14/2020 4:23:53 PM Referred By: Confirmed By:SHARI LIN M.D.
== END 2020-01-30 14:19 | disposition home or self-care (01) ==
LOC: ERS 11:02
DX: R11.2 Nausea with vomiting, unspecified (principal); E11.9 Type 2 diabetes mellitus without complications; E78.5 Hyperlipidemia, unspecified; E78.00 Pure hypercholesterolemia, unspecified; I10 Essential (primary) hypertension; I25.2 Old myocardial infarction; Z85.830 Personal history of malignant neoplasm of bone; Z79.84 Long term (current) use of oral hypoglycemic drugs; Z79.899 Other long term (current) drug therapy
CPT/HCPCS: 36415; 74177; 80053; 83690; 84484; 85025; 93005; 96374; 96376; J2405; Q9967

== ENCOUNTER 2020-02-02 07:31 | Outpatient (CLI) | payer MEDICARE, MEDICAID ==
--- NOTE | 2020-02-02 09:04 | CT ---
CT OF THE CHEST, ABDOMEN AND PELVIS WITH IV CONTRAST INDICATION: History of breast cancer with osseous metastatic disease. COMPARISON: CT the abdomen and pelvis dated January 30, 2020 and January 22, 2018 comparisons are al so made with a CT of the chest dated November 10, 2019 and November 11, 2018 FINDINGS: CHEST: Lungs: The lungs are clear. Pleural space: No effusion. Mediastinum: No pathologically enlarged lymph nodes are evident. Axilla: There is less nodular-like appearance involving the reticulation of the right axilla likely related to treatment malignant lymphadenopathy. The opacity now measures approximately 1.4 x 0.7 cm. No new lymphadenopathy is evident. ABDOMEN: Liver: No focal lesion. Gallbladder: Surgically absent Pancreas: Normal. Adrenal glands: The small nodular hypodensity involving the left adrenal gland body is stable since 2 018. Right adrenal gland is normal-appearing. Spleen: Normal. Kidneys and ureters: There is a small exophytic 1.3 cm cyst involving inferior pole left kidney. Righ t kidney is normal-appearing. Vasculature: There are mild vascular calcifications seen involving the visualized vasculature. Lymph nodes:No lymphadenopathy. Free fluid in abdomen:No free fluid is evident. PELVIS: Small and large bowel: There is a mild to moderate amount of retained stool within the colon. Appendix:Normal Bladder: Normal. Rectal and perirectal soft tissues:Normal. Reproductive structures: Uterus is surgically absent. Visualized adnexa appear within normal limits. Free fluid in pelvis: Mild free fluid Lymphadenopathy pelvis: No lymphadenopathy is evident. Osseous structures: The sclerotic osteoblastic lesion involving the right superior acetabular region is stable to the most recent CT examination. No pathologic fracture is evident. No new region of osteoblastic or osteolytic metastatic disease is demonstrated. Small bone island is seen within the l eft aspect of L3 which is stable. There is scattered degenerative and osteoarthritic changes. Soft tissues:Normal. IMPRESSION: 1. Less nodular appearance involving the soft tissue density in the right axilla likely related to ma lignant lymphadenopathy responding to therapy. Continued CT follow-up is recommended. 2. Stable sclerotic lesion involving the right superior acetabular region consistent patient's known osteoblastic metastatic disease. 3. 1.3 exophytic lesion involving the inferior pole left kidney demonstrates postcontrast Hounsfield units of a simple cyst and appears stable since 2018. Small nodule involving the left adrenal gland is stable since 2018.
--- NOTE | 2020-02-02 12:19 | NM ---
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 Follow-up after radiation therapy. COMPARISON: 11/10/2019 TECHNIQUE: IV injection of technetium [id number]: 30.1 mCi 3 hour delayed whole body skeletal scintigraphy in anterior and posterior views. FINDINGS: Again noted is the focus of increased uptake in the right acetabulum. Scattered foci of increased uptake in posterior elements of C-spine, T-spine, lower lumbar spine, con sistent with degenerative changes. Increased uptake at left hip, bilateral feet, bilateral AC joints, and bilateral sternoclavicular zoë ctions, consistent with degenerative changes. No new suspicious foci of increased uptake. No interval change overall. IMPRESSION: 1) focus of increased uptake at right acetabulum which may represent a solitary osseous metastasis. 2) scattered osteoarthrosis. 3) no interval change overall since 3 months ago.
[2020-02-02] MEDS ORDERED: Iopamidol 370 76% 100 ML VIAL ONE (12:58)
== END 2020-02-02 07:32 | disposition home or self-care (01) ==
LOC: CT 07:31
PROVIDERS: ATTEND Internal Medicine Hematology & Oncology
DX: C79.51 Secondary malignant neoplasm of bone (principal); C50.411 Malignant neoplasm of upper-outer quadrant of right female breast; M79.89 Other specified soft tissue disorders; N28.89 Other specified disorders of kidney and ureter; N28.1 Cyst of kidney, acquired; E27.8 Other specified disorders of adrenal gland; M19.90 Unspecified osteoarthritis, unspecified site
CPT/HCPCS: 71260; 74177; 78306; A9503; Q9967

== ENCOUNTER 2020-05-11 09:04 | Outpatient (CLI) | payer MEDICARE, MEDICAID ==
[2020-05-11] MEDS ORDERED: Iopamidol 370 76% 100 ML VIAL ONE (11:11)
== END 2020-05-11 09:05 | disposition home or self-care (01) ==
LOC: CT 09:04
PROVIDERS: ATTEND Internal Medicine Hematology & Oncology
DX: C79.51 Secondary malignant neoplasm of bone (principal); C50.919 Malignant neoplasm of unspecified site of unspecified female breast; N28.1 Cyst of kidney, acquired; Z90.49 Acquired absence of other specified parts of digestive tract; E27.8 Other specified disorders of adrenal gland
CPT/HCPCS: 71260; 74177; 78306; 82565; A9503

== ENCOUNTER 2020-12-21 08:42 | Outpatient (CLI) | payer MEDICAID, MEDICARE | END 2020-12-21 08:43 | disposition home or self-care (01) | LOC: PET 08:42 | PROVIDERS: ATTEND Internal Medicine Hematology & Oncology | DX: C50.411 Malignant neoplasm of upper-outer quadrant of right female breast (principal); C79.51 Secondary malignant neoplasm of bone | CPT/HCPCS: 78815; A9552 ==

== ENCOUNTER 2020-12-23 08:59 | Outpatient (CLI) | payer MEDICARE | END 2020-12-23 09:00 | disposition home or self-care (01) | LOC: BICMAMMO 08:59 | PROVIDERS: ATTEND Internal Medicine Hematology & Oncology | DX: C50.411 Malignant neoplasm of upper-outer quadrant of right female breast (principal); C79.51 Secondary malignant neoplasm of bone | CPT/HCPCS: 77066; G0279 ==

== ENCOUNTER 2021-01-26 09:35 | Outpatient (CLI) | payer MEDICARE ==
[2021-01-26 10:43] LABS: Hemoglobin 11.8 g/dL (12.0-15.5); Mean Corpuscular HGB CONC 33.8 g/dL (32.0-36.0); Mean Corpuscular Hemoglobin 34.6 pg (27.0-33.0); Mean Corpuscular Volume 102.3 fl (81.6-98.3); Mean Platelet Volume 9.5 fl (7.4-10.4); Platelet Count 144 10x3/uL (150-450); RBC Distribution Width 14.6 % (11.5-14.5); Red Blood Cell (RBC) Count 3.41 10x6/uL (3.90-5.03); White Blood Cell (WBC) Count 2.2 10x3/uL (3.5-10.5)
[2021-01-26 10:46] LABS: Anion Gap 13 mmol/L (10-20); BUN (Urea Nitrogen) 23 mg/dL (9.8-20.1); Calc. Creatinine Clearance 0 mL/min (70-130); Calcium 9.2 mg/dL (7.8-10.44); Carbon Dioxide 24 mmol/L (23-31); Chloride 107 mmol/L (98-107); Glucose 229 mg/dL (80-115); Potassium 4.3 mmol/L (3.5-5.1); Sodium 140 mmol/L (136-145)
[2021-01-26 11:12] LABS: MDiff Complete? YES
[2021-01-26 11:19] LABS: Eosinophils 1 % (0-10); Neutrophil 49 % (42-75)
[2021-01-26 11:23] LABS: Lymphocytes 44 % (21-51); Monocytes 6 % (0-10)
[2021-01-26 11:24] LABS: Platelet Morphology Comment Appears Adequate
[2021-01-26 11:25] LABS: Macrocytosis SLIGHT = 6-15 cells (100X) (0-5/hpf)
[2021-01-26 21:33] LABS: SARS-CoV-2 PCR by NAA Not Detected (NotDetected)
== END 2021-01-26 09:36 | disposition home or self-care (01) ==
LOC: LABBT 09:35
PROVIDERS: ATTEND Surgery
DX: Z01.818 Encounter for other preprocedural examination (principal); C50.919 Malignant neoplasm of unspecified site of unspecified female breast; Z20.822 Contact with and (suspected) exposure to COVID-19
CPT/HCPCS: 80048; 85025; U0003; U0005; 93005; 93010

== ENCOUNTER 2021-01-31 11:27 | Day surgery (SDC) | payer MEDICARE, OTHER ==
[2021-01-27 11:11] VITALS: BMI 32.3
[2021-01-31] MEDS ORDERED: ceFAZolin 2 GM/DEX 5% 100 ML BAG ONE (11:42)
[2021-01-31] MEDS ORDERED: Lidocaine 1% w/Epinephrine 1:100K 20 ML VIAL ONE (12:34)
[2021-01-31] MEDS ORDERED: Bupivacaine 0.25% 10 ML VIAL ONE (12:34)
[2021-01-31] MEDS ORDERED: Methylene Blue 50 MG/10 ML AMPUL ONE (12:36)
[2021-01-31] MEDS ORDERED: Fentanyl 100 MCG/2 ML VIAL ONE (12:42)
[2021-01-31] MEDS ORDERED: Ondansetron PF 4 MG/2 ML Vial ONE (13:08)
[2021-01-31] MEDS ORDERED: Lidocaine 1% PF 5 ML VIAL ONE (13:08)
[2021-01-31] MEDS ORDERED: PROPOFOL 200 MG/20 ML VIAL ONE (13:08)
[2021-01-31] MEDS ORDERED: Dexamethasone 20 MG/5 ML VIAL ONE (13:08)
[2021-01-31] MEDS ORDERED: HYDROcodone/Acetaminophen 5/325 mg Tablet ONE (15:32)
== END 2021-01-31 16:20 | disposition home or self-care (01) ==
LOC: SDC 11:27
PROVIDERS: ATTEND Surgery
PROC: 0HBT0ZZ Excision of Right Breast, Open Approach (ICD-10-PCS; principal; 2021-01-31)
DX: C50.911 Malignant neoplasm of unspecified site of right female breast (principal); E11.9 Type 2 diabetes mellitus without complications; M19.90 Unspecified osteoarthritis, unspecified site; E78.5 Hyperlipidemia, unspecified; I10 Essential (primary) hypertension; I25.2 Old myocardial infarction; Z17.0 Estrogen receptor positive status [ER+]; Z79.02 Long term (current) use of antithrombotics/antiplatelets; Z79.84 Long term (current) use of oral hypoglycemic drugs; Z79.899 Other long term (current) drug therapy
CPT/HCPCS: 88307; 88341; 88342; J1100; J2405; J2704; J3010; Q9968; S0020